=== PATIENT | male | born 1945 | race Caucasian/White ===

== ENCOUNTER 2023-07-24 16:00 | Inpatient (IN) | payer MEDICARE, BC, SELFPAY ==
[2023-07-24] VITALS (71 sets, daily range): BP systolic 109–167; BP diastolic 56–131; PULSE 64–92; RESP 16–24; TEMP 37.7–38.8; O2SAT 89–97; BMI 35.9; BMI 38.0
--- NOTE | 2023-07-24 16:25 | ED.GENADULT ---
HPI - General Adult General Time Seen by Provider: 16:25 Date Seen: 07/24/23 Chief complaint: Weakness Stated complaint: Weakness and fever, shaky Time Seen by Provider: 07/24/23 16:23 Source: patient, family, RN notes reviewed and old records reviewed Mode of arrival: ambulatory Limitations: no limitations History of Present Illness HPI narrative: This 78-year-old male is accompanied by his grandson coming in with a fever. He was at the radiation Center, receiving his 3rd dose of right neck radiation for reported positive lymph nodes with his underlying cancer. Today he seemed weaker per his grandson, required assistance with movement and positioning for the radiation, seemed weaker with walking. He is complaining of neck pain, bilateral, did take a Tylenol No. 3 around 2-230 this afternoon. He did start having shaking at radiation, started with increasing weakness and confusion, noted a fever of 101? F. He was told at the radiation center that he should come here. He has not been coughing, no abdominal pain, no nausea vomiting or diarrhea, no urinary symptoms. No definite known ill contacts. 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 He states the surgery was at [facility], did have a postoperative bleed from the surgical site per his report complicating his surgery. 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 He also has a adenocarcinoma of the left upper lobe. He is receiving his radiation at the [facility] facility here in [place]. His other care in his chemotherapy is at [place]. His other past medical history is noted to be positive for GERD which she states is controlled, gout, hyperlipidemia, hypertension, prediabetes. He has had colonoscopy, retinal detachment surgery. He has not smoked or used tobacco products, no alcohol use. Related Data Home Medications Medication Instructions Recorded Confirmed acetaminophen 500 mg capsule 1,000 mg PO Q6H PRN 07/15/23 07/24/23 allopurinol 300 mg tablet 300 mg PO QDAY 07/15/23 07/24/23 amitriptyline 50 mg tablet 50 mg PO QHS 07/15/23 07/24/23 amlodipine 10 mg tablet 10 mg PO QDAY 07/15/23 07/24/23 esomeprazole magnesium 20 mg 20 mg PO QDAY 07/15/23 07/24/23 capsule,delayed release olmesartan 40 mg tablet 40 mg PO QDAY 07/15/23 07/24/23 sennosides 8.6 mg tablet (Natural 8.6 mg PO QDAY 07/15/23 07/24/23 Senna Laxative) acetaminophen 300 mg-codeine 30 mg 1 tab PO chronic pain 07/24/23 tablet fluoride (sodium) 1.1 % dental gel PO DAILY 07/24/23 omeprazole 20 mg capsule,delayed 20 - 40 mg PO DAILY 07/24/23 07/24/23 release Previous Rx's Medication Instructions Recorded ondansetron HCl 4 mg tablet 4 mg PO Q8H #60 tabs 07/15/23 prochlorperazine maleate 5 mg 5 mg PO BID PRN nausea and 07/15/23 tablet (Compazine) vomiting #60 tabs Allergies Allergy/AdvReac Type Severity Reaction Status Date / Time statins AdvReac Mild itching Uncoded 07/15/23 13:34 Review of Systems Status of ROS: Reports: 6 or more systems reviewed and unremarkable except as noted in History and below PFSH PFS Social History Smoking Status: Never smoker Non-prescribed substance use: denies use Exam Const: Vital Signs, click to edit/add: Vital Signs - 24 hr 07/24/23 16:12 07/24/23 16:33 07/24/23 17:27 Temperature 101.2 F H Pulse Rate 85 Pulse Rate [Pulse Oximeter] 84 Respiratory Rate 16 Blood Pressure 140/64 H Blood Pressure [Ri ght Upper Arm] 150/62 H Pulse Oximetry 97 94 93 Oxygen Delivery Me thod Room Air 07/24/23 17:28 07/24/23 17:30 07/24/23 17:37 Temperature Pulse Rate 85 84 83 Pulse Rate [Pulse Oximeter] Respiratory Rate Blood Pressure 144/74 H Blood Pressure [Ri ght Upper Arm] Pulse Oximetry 95 93 95 Oxygen Delivery Me thod 07/24/23 17:43 07/24/23 17:45 07/24/23 17:47 Temperature Pulse Rate 86 81 84 Pulse Rate [Pulse Oximeter] Respiratory Rate Blood Pressure 132/101 H 146/73 H Blood Pressure [Ri ght Upper Arm] Pulse Oximetry 94 92 96 Oxygen Delivery Me thod 07/24/23 17:52 07/24/23 17:57 07/24/23 18:00 Temperature 100 F H Pulse Rate 88 78 77 Pulse Rate [Pulse Oximeter] Respiratory Rate 22 Blood Pressure 139/90 H 144/66 H Blood Pressure [Ri ght Upper Arm] Pulse Oximetry 94 96 95 Oxygen Delivery Me thod 07/24/23 18:03 07/24/23 18:07 07/24/23 18:12 Temperature Pulse Rate 75 75 72 Pulse Rate [Pulse Oximeter] Respiratory Rate Blood Pressure 127/73 133/65 118/76 Blood Pressure [Ri ght Upper Arm] Pulse Oximetry 94 93 94 Oxygen Delivery Me thod 07/24/23 18:15 07/24/23 18:18 07/24/23 18:22 Temperature Pulse Rate 78 78 75 Pulse Rate [Pulse Oximeter] Respiratory Rate Blood Pressure 130/86 128/61 Blood Pressure [Ri ght Upper Arm] Pulse Oximetry 94 94 94 Oxygen Delivery Me thod 07/24/23 18:27 07/24/23 18:30 07/24/23 18:32 Temperature Pulse Rate 75 76 80 Pulse Rate [Pulse Oximeter] Respiratory Rate Blood Pressure 132/64 121/56 L Blood Pressure [Ri ght Upper Arm] Pulse Oximetry 93 92 94 Oxygen Delivery Me thod 07/24/23 18:37 07/24/23 18:42 07/24/23 18:45 Temperature Pulse Rate 82 76 75 Pulse Rate [Pulse Oximeter] Respiratory Rate Blood Pressure 127/59 L 122/64 Blood Pressure [Ri ght Upper Arm] Pulse Oximetry 93 90 89 Oxygen Delivery Me thod 07/24/23 18:47 07/24/23 18:52 07/24/23 18:57 Temperature Pulse Rate 81 80 88 Pulse Rate [Pulse Oximeter] Respiratory Rate Blood Pressure 116/66 119/61 118/65 Blood Pressure [Ri ght Upper Arm] Pulse Oximetry 89 89 90 Oxygen Delivery Me thod 07/24/23 19:00 07/24/23 19:02 07/24/23 19:07 Temperature Pulse Rate 83 78 85 Pulse Rate [Pulse Oximeter] Respiratory Rate Blood Pressure 123/60 124/58 L Blood Pressure [Ri ght Upper Arm] Pulse Oximetry 90 90 90 Oxygen Delivery Me thod 07/24/23 19:12 07/24/23 19:13 07/24/23 19:15 Temperature Pulse Rate 83 80 77 Pulse Rate [Pulse Oximeter] Respiratory Rate Blood Pressure 114/58 L Blood Pressure [Ri ght Upper Arm] Pulse Oximetry 89 90 91 Oxygen Delivery Me thod 07/24/23 19:17 07/24/23 19:22 07/24/23 19:27 Temperature Pulse Rate 72 79 64 Pulse Rate [Pulse Oximeter] Respiratory Rate Blood Pressure 110/62 109/62 109/61 Blood Pressure [Ri ght Upper Arm] Pulse Oximetry 91 94 [facility] 07[facility] 19:30 07/24/23 19:32 07/24/23 19:38 Temperature Pulse Rate 72 69 73 Pulse Rate [Pulse Oximeter] Respiratory Rate Blood Pressure 120/60 123/59 L Blood Pressure [Ri ght Upper Arm] Pulse Oximetry 91 91 91 [facility] 07/24/23 19:55 07/24/23 19:56 07/24/23 19:57 Temperature Pulse Rate 82 82 78 Pulse Rate [Pulse Oximeter] Respiratory Rate Blood Pressure 160/68 H 137/65 Blood Pressure [Ri ght Upper Arm] Pulse Oximetry 95 94 95 [facility] 78[facility] is alert, interactive, no apparent distress. Able speak in complete sentences. Sclera clear, conjugate gaze. Face atraumatic. Speaking in complete sentences. He has some very mild erythema along his right neck, his postsurgical scar is well healed. Do not appreciate any secondary infection in this right neck. Lungs with distant breath some but no wheezing or crackles noted, no tachypnea. CV regular rate and rhythm, no murmur, normal S1-S2. Abdomen is soft, nontender, nondistended, feel no masses. He has no lower extremity edema. Skin visualized without rash. Documenting provider has reviewed patient's vital signs: yes Course Course ED Course: 78-year-old male with underlying lung cancer reportedly undergoing chemotherapy, metastatic left lymph nodes with squamous cell carcinoma of unknown primary receiving radiation therapy with a fever of unknown source. Will consider viral etiologies, will have nursing staff do the triple viral swab. Will obtain urine, blood cultures, appropriate labs as well as a portable chest x-ray. Consider advanced imaging if felt needed. He is having significant pain from the radiation. I am going to give him a dose of IV morphine. I see no localized evidence of any infection at this site. Will obtain EKG and troponin considering other possible components of chest pain for him. Will initiate IV fluids. Do need to watch for sepsis in this patient. Reevaluation(s) Time of Reevaluation #1: 18:12 Reevaluation #1: Reviewed with this patient that we are going to proceed with chest abdomen and pelvis CT imaging to look for source of infection. He is feeling less pain in his neck after the morphine but wondered if he could have just a small amount more, states he is feeling pain in the shoulder blade area. His troponin is negative. He is likely to need hospitalization due to his fever, weakness. Need to continue to look for source of infection. Will order 2 mg IV morphine for him. He still is not had the need to urinate, he is almost done with his 1 L of fluids. Will order a 2 L of fluids at this time. Consultations Consultation #1: Have spoken with the hospitalist Roma Key. I did find out as I was talking to her that the urinalysis has been collected, blood cultures have been done on arrival, we do not have a focus of infection. Nursing staff reported his temperature is back up to 102? F. I will order Zosyn, another 500 mL of LR to cover for sepsis fluids. His lactate has improved with the initial fluids. He is still otherwise hemodynamically stable. She does accept him. Time: 21:45 Vital Signs Vital signs: Initial Vital Signs Temperature 101.2 F H 07/24/23 16:12 Temperature Source Temporal Artery Scan 07/24/23 16:12 Pulse Rate 84 07/24/23 16:12 Pulse Rhythm Regular 07/24/23 16:12 Pulse Strength 3+ Normal 07/24/23 16:12 Respiratory Rate 16 07/24/23 16:12 Blood Pressure 150/62 H 07/24/23 16:12 Blood Pressure Mean 91 07/24/23 16:12 Blood Pressure Position Sitting 07/24/23 16:12 Pulse Oximetry 97 07/24/23 16:12 Oxygen Delivery Method Room Air 07/24/23 16:12 Vital Signs Temperature 101.2 F H 07/24/23 16:12 Pulse Rate 84 07/24/23 16:12 Respiratory Rate 16 07/24/23 16:12 Blood Pressure 150/62 H 07/24/23 16:12 Pulse Oximetry 97 07/24/23 16:12 Oxygen Delivery Method Room Air 07/24/23 16:12 Temperature 100 F H 07/24/23 17:52 Pulse Rate 78 07/24/23 19:57 Respiratory Rate 22 07/24/23 17:52 Blood Pressure 137/65 07/24/23 19:57 Pulse Oximetry 95 07/24/23 19:57 Oxygen Delivery Method Room Air 07/24/23 16:12 Medications Administered Medications: Discontinued Medications Generic Name Dose Route Start Last Admin Trade Name Freeber PRN Reason Stop Dose Admin Acetaminophen 650 mg 07/24/23 17:27 07/24/23 17:45 Acetaminophen 325 Mg Tablet PO 07/24/23 17:28 650 mg ONCE ONE Administration Sodium Chloride 1,000 mls @ 500 mls/hr 07/24/23 16:37 07/24/23 18:20 0.9 % Sodium Chloride 1000 Ml IV 07/24/23 18:36 Infused .Q2H TAPAN Infusion Morphine Sulfate 4 mg 07/24/23 16:37 07/24/23 17:11 Morphine 4 Mg/Ml Inj IVP 07/24/23 16:38 4 mg ONCE ONE Administration Ondansetron HCl 4 mg 07/24/23 17:27 07/24/23 17:45 Ondansetron 2 Mg/Ml Inj IVP 07/24/23 17:28 4 mg ONCE ONE Administration Medical Decision Making Lab Data Lab results reviewed: Yes I reviewed the patient's lab results Labs: Lab Results 07/24/23 07/24/23 07/24/23 Range/Units 16:42 16:42 16:42 WBC 13.95 H (4.50-11.00) K/uL RBC 3.61 L (4.30-5.90) m/uL Hgb 11.4 L (13.5-17.5) gm/dL Hct 34.5 L (37.0-53.0) % MCV 96 (80-100) fL MCH 32 (26-34) pg MCHC 33 (32-36) gm/dL RDW Coeff of Renny 15.2 (11.5-15.5) % Plt Count 234 (140-440) K/uL Neut % (Auto) 93.4 H (42.0-72.0) % Lymph % (Auto) 0.8 L (20-44) % [place] % (Auto) 5.3 (0.0-11.0) % Eos % (Auto) 0.0 (0.0-7.0) % Baso % (Auto) 0.1 (0.0-3.0) % Neut # (Auto) 13.00 H (1.7-7.0) K/uL Lymph # (Auto) 0.10 L (0.90-2.90) K/uL [place] # (Auto) 0.70 (0.00-0.90) K/UL Eos # (Auto) 0.00 (0.00-0.50) K/uL Baso # (Auto) 0.00 (0.00-0.30) K/uL Abs Immat Gran (auto) 0.10 (0.00-0.30) K/uL Imm/Tot Granulo (auto) 0.4 % Sodium 136 (135-149) mmol/L Potassium 4.1 (3.6-5.1) mmol/L Chloride 105 (96-114) mmol/L Carbon Dioxide 19 L (20-32) mmol/L Anion Gap 12 (7-15) mEq/L BUN 30 (7-30) mg/dL Creatinine 1.8 H (0.5-1.5) mg/dL Estimated Creat Clear 33.80 Estimated GFR 38 ml/min Glucose 126 H (60-115) mg/dL Lactate 2.9 H (0.5-1.9) mmol/L Calcium 9.4 (8.4-10.6) mg/dL Total Bilirubin 0.5 (0.1-1.5) mg/dL AST 33 (12-35) U/L ALT 37 (4-50) U/L Alkaline Phosphatase 87 (40-150) U/L Troponin I < 0.01 L Cancelled (0.01-0.04) ng/mL C-Reactive Protein < 0.5 L (0.5-1.0) mg/dL NT-Pro-B Natriuret Pep 652 Cancelled pg/mL Total Protein 7.3 (6.0-8.3) g/dL Albumin 4.4 (3.3-5.0) g/dL Urine Color (Yellow) Urine Appearance (Clear) Urine pH (5.0-8.5) Ur Specific [place] (1.000-1.030) Urine Protein (Negative) Urine Glucose (UA) (Negative) Urine Ketones (Negative) Urine Blood (Negative) Urine Nitrite (Negative) Urine Bilirubin (Negative) Urine Urobilinogen (0.2-1.0) Ur Leukocyte Esterase (Negative) Urine RBC (0-2) Urine WBC (0-5) Ur Squamous Epith Cells (None-Few) Urine Bacteria (None) SARS-CoV-2 (PCR) Negative SARS-CoV-2 (Negative) Influenza Type A (PCR) Negative PCR FLU A (Negative) Influenza Type B (PCR) Negative PCR FLU B (Negative) RSV (PCR) Negative PCR RSV (Negative) 07/24/23 07/24/23 Range/Units 20:35 20:42 WBC (4.50-11.00) K/uL RBC (4.30-5.90) m/uL Hgb (13.5-17.5) gm/dL Hct (37.0-53.0) % MCV (80-100) fL MCH (26-34) pg MCHC (32-36) gm/dL RDW Coeff of Renny (11.5-15.5) % Plt Count (140-440) K/uL Neut % (Auto) (42.0-72.0) % Lymph % (Auto) (20-44) % [place] % (Auto) (0.0-11.0) % Eos % (Auto) (0.0-7.0) % Baso % (Auto) (0.0-3.0) % Neut # (Auto) (1.7-7.0) K/uL Lymph # (Auto) (0.90-2.90) K/uL [place] # (Auto) (0.00-0.90) K/UL Eos # (Auto) (0.00-0.50) K/uL Baso # (Auto) (0.00-0.30) K/uL Abs Immat Gran (auto) (0.00-0.30) K/uL Imm/Tot Granulo (auto) % Sodium (135-149) mmol/L Potassium (3.6-5.1) mmol/L Chloride (96-114) mmol/L Carbon Dioxide (20-32) mmol/L Anion Gap (7-15) mEq/L BUN (7-30) mg/dL Creatinine (0.5-1.5) mg/dL Estimated Creat Clear Estimated GFR ml/min Glucose (60-115) mg/dL Lactate 2.0 H (0.5-1.9) mmol/L Calcium (8.4-10.6) mg/dL Total Bilirubin (0.1-1.5) mg/dL AST (12-35) U/L ALT (4-50) U/L Alkaline Phosphatase (40-150) U/L Troponin I (0.01-0.04) ng/mL C-Reactive Protein (0.5-1.0) mg/dL NT-Pro-B Natriuret Pep pg/mL Total Protein (6.0-8.3) g/dL Albumin (3.3-5.0) g/dL Urine Color Yellow (Yellow) Urine Appearance Clear (Clear) Urine pH 5.0 (5.0-8.5) Ur Specific [place] 1.015 (1.000-1.030) Urine Protein Trace A (Negative) Urine Glucose (UA) Negative (Negative) Urine Ketones Negative (Negative) Urine Blood Negative (Negative) Urine Nitrite Negative (Negative) Urine Bilirubin Negative (Negative) Urine Urobilinogen 0.2 (0.2-1.0) Ur Leukocyte Esterase Negative (Negative) Urine RBC 2-5 A (0-2) Urine WBC 10-25 A (0-5) Ur Squamous Epith Cells None (None-Few) Urine Bacteria None (None) SARS-CoV-2 (PCR) (Negative) Influenza Type A (PCR) (Negative) Influenza Type B (PCR) (Negative) RSV (PCR) (Negative) Imaging Data CT Chest/Ab/Pelvis: Attestation: I have reviewed the pertinent imaging results. Radiologist's impression: Patient: JEFERSON CASSIDY Facility:?[facility] Patient ID:?[id number] Site Patient ID:?[id number]. Site :?[id number] Study:?CT Chest/Abd/Pelvis W/ 122CC ISOVUE 370-07/24/2023 7:54:53 PM Ordering Physician:SAIMA Final Report: INDICATION: FEVER, UNKNOWN SOURCE, LUNG CA MARISA, LYMP METS SCC NO SOURCE. TECHNIQUE: CT chest, abdomen and pelvis acquired with 122cc Isovue 370 IV contrast. COMPARISON: None. FINDINGS: CHEST Lungs and pleura: 1.6 cm irregular nodular density in the left upper lobe (3/35). No effusions, thickening, or pneumothorax. No consolidation. Heart and vasculature: Heart size is normal. Thoracic aorta and pulmonary artery are normal in caliber. Coronary artery calcification. Lymph node/mediastinum: No mediastinal, hilar, or axillary adenopathy. Mildly enlarged right distal paraesophageal lymph node measuring 8 mm in short axis. Small to moderate-sized hiatal hernia. Chest wall: Normal. Bones: Old right lateral 5th and 6th rib fractures. No suspicious lesion. ABDOMEN AND PELVIS: Liver: Normal in caliber and attenuation. No masses. Gallbladder and bile ducts: Unremarkable. Pancreas: Fatty atrophy. No inflammation or mass. Spleen: Normal in caliber. No masses. Adrenal glands: Unremarkable. No masses. Kidneys: Two small nonobstructing right nephroliths, measuring up to 3 mm. Atrophic right kidney. GI tract: Normal in caliber and appearance. The appendix is not clearly visualized; however, there are no inflammatory changes in the right lower quadrant. Vasculature: Normal caliber abdominal aorta with mild atherosclerotic calcification. Mesenteric arteries are patent. Lymph nodes: No lymphadenopathy. Omentum/peritoneum/retroperitoneum/abdominal wall: No masses or infiltration. No free air or significant free fluid. Small fat-containing right inguinal hernia. Pelvic organs: Prostatomegaly. Bones: No suspicious bone lesions. IMPRESSION: 1. No acute finding within the chest, abdomen or pelvis. No finding to explain the patient`s fever. 2. 1.6 cm irregular nodular density in the left upper lobe. No prior study available for comparison. Malignancy can not be excluded. This could be further evaluated PET-CT, if not previously performed or if this is a new finding. 3. Small to moderate-sized hiatal hernia. 4. Small nonobstructing right nephroliths. No evidence for obstructive uropathy. 5. Prostatomegaly. 6. Nonspecific mildly enlarged right distal paraesophageal lymph node measuring 8 mm. Metastatic disease can not be entirely excluded given the history of malignancy. Please note that all CT scans at this facility use dose modulation, iterative reconstruction, and/or weight-based dosing when appropriate to reduce radiation dose to as low as reasonably achievable. Dictated by Jose Philip MD @ 07/24/2023 9:04:54 PM (Electronic Signature) ECG Data Attestation: I personally reviewed and interpreted this ECG as follows: (Sinus rhythm, 85 beats per minute. There is some artifact. Difficult to interpret lead 1 into due to artifact but overall no concerning ischemic change. QT corrected at 421 milliseconds.) Prior ECG tracings: not available for review Discharge Plan Discharge Clinical Impression: Fever of unknown origin Patient Disposition: Admitted As Observation Condition: Unchanged
--- NOTE | 2023-07-24 16:33 | XR_ITS ---
Patient: JEFERSON CASSIDY Facility:?[facility] Patient ID:?[id number] Site Patient ID:?[id number]. Site :?[id number] Study:?XRay-Chest PORTABLE-07/24/2023 5:56:15 PM Ordering Physician:SAIMA Final Report: INDICATION: Shortness of breath. COMPARISON: None available. TECHNIQUE: 1 view. FINDINGS: The patient is slightly rotated rightward. Medical Devices: None. Lung Volumes: Adequate inspiration. No significant atelectasis. Lungs: Clear lungs. Pleura and Pleural spaces: No significant pleural effusion. No pneumothorax. Mediastinum: Hiatus hernia. Bony Thorax and Soft Tissues: No significant incidental findings. Healed fractures of the right posterolateral 5th and 6th ribs. IMPRESSION: No imaging findings pertinent to the indication for the exam or significant unrelated findings. Incidental findings described in the body of the report. Dictated by Octaviano Jaramillo MD @ 07/25/2023 7:24:05 AM Signed by:?Octaviano Jaramillo MD @07/25/2023 7:24:05 AM (Electronic Signature)
[2023-07-24] MEDS: 0.9 % SODIUM CHLORIDE 1000 ml 1,000 ML 500 ML IV ×2 (17:11→20:00)
[2023-07-24] MEDS: MORPHINE 4 MG/ML INJ IVP (17:11)
[2023-07-24 17:14] LABS: Lactate* 2.9 mmol/L (0.5-1.9)
[2023-07-24 17:16] LABS: Basophils Percent Auto 0.1 % (0.0-3.0); Hematocrit 34.5 % (37.0-53.0); Hemoglobin* 11.4 gm/dL (13.5-17.5); Immature Granulocytes Pct Auto 0.4 %; Lymphocytes Percent Auto 0.8 % (20-44); Mean Corpuscular HGB Conc 33 gm/dL (32-36); Mean Corpuscular Hemoglobin 32 pg (26-34); Mean Corpuscular Volume 96 fL (80-100); Monocytes Percent Auto 5.3 % (0.0-11.0); Neutrophils Percent Auto 93.4 % (42.0-72.0); Platelet Count* 234 K/uL (140-440); RDW Coefficient of Variation % 15.2 % (11.5-15.5); Red Blood Count 3.61 m/uL (4.30-5.90); Slide Review Reflex No; White Blood Count* 13.95 K/uL (4.50-11.00)
[2023-07-24 17:38] LABS: Albumin* 4.4 g/dL (3.3-5.0); Chloride* 105 mmol/L (96-114); Sodium* 136 mmol/L (135-149)
[2023-07-24 17:39] LABS: Potassium* 4.1 mmol/L (3.6-5.1)
[2023-07-24 17:41] LABS: Bilirubin Total* 0.5 mg/dL (0.1-1.5); Creatinine* 1.8 mg/dL (0.5-1.5); Estimated Glomerular Filt Rate 38 ml/min
[2023-07-24 17:42] LABS: Alanine Aminotransferase* 37 U/L (4-50); Alkaline Phosphatase* 87 U/L (40-150); Anion Gap 12 mEq/L (7-15); Aspartate Amino Transferase* 33 U/L (12-35); Blood Urea Nitrogen* 30 mg/dL (7-30); Calcium* 9.4 mg/dL (8.4-10.6); Carbon Dioxide* 19 mmol/L (20-32); Glucose* 126 mg/dL (60-115); Total Protein* 7.3 g/dL (6.0-8.3)
[2023-07-24] MEDS: ACETAMINOPHEN 325 MG TABLET 650 MG PO ×2 (17:45→22:00)
[2023-07-24] MEDS: ONDANSETRON 2 MG/ML inj 4 MG IVP (17:45)
[2023-07-24 17:51] LABS: C Reactive Protein* < 0.5 mg/dL (0.5-1.0); NT Pro B Type NatriureticPept* 652 pg/mL
[2023-07-24 17:52] LABS: PCR FLU A Negative PCR FLU A (Negative); PCR FLU B Negative PCR FLU B (Negative); PCR RSV Negative PCR RSV (Negative); SARS PCR* Negative SARS-CoV-2 (Negative)
[2023-07-24 17:54] LABS: Troponin I* < 0.01 ng/mL (0.01-0.04)
--- NOTE | 2023-07-24 18:09 | CT_ITS ---
Patient: JEFERSON CASSIDY Facility:?[facility] Patient ID:?[id number] Site Patient ID:?[id number]. Site :?[id number] Study:?CT-Chest/Abd/Pelvis W/ 122CC ISOVUE 370-07/24/2023 7:54:53 PM Ordering Physician:SAIMA Final Report: INDICATION: FEVER, UNKNOWN SOURCE, LUNG CA MARISA, LYMP METS SCC NO SOURCE. TECHNIQUE: CT chest, abdomen and pelvis acquired with 122cc Isovue 370 IV contrast. COMPARISON: None. FINDINGS: CHEST Lungs and pleura: 1.6 cm irregular nodular density in the left upper lobe (3/35). No effusions, thickening, or pneumothorax. No consolidation. Heart and vasculature: Heart size is normal. Thoracic aorta and pulmonary artery are normal in caliber. Coronary artery calcification. Lymph node/mediastinum: No mediastinal, hilar, or axillary adenopathy. Mildly enlarged right distal paraesophageal lymph node measuring 8 mm in short axis. Small to moderate-sized hiatal hernia. Chest wall: Normal. Bones: Old right lateral 5th and 6th rib fractures. No suspicious lesion. ABDOMEN AND PELVIS: Liver: Normal in caliber and attenuation. No masses. Gallbladder and bile ducts: Unremarkable. Pancreas: Fatty atrophy. No inflammation or mass. Spleen: Normal in caliber. No masses. Adrenal glands: Unremarkable. No masses. Kidneys: Two small nonobstructing right nephroliths, measuring up to 3 mm. Atrophic right kidney. GI tract: Normal in caliber and appearance. The appendix is not clearly visualized; however, there are no inflammatory changes in the right lower quadrant. Vasculature: Normal caliber abdominal aorta with mild atherosclerotic calcification. Mesenteric arteries are patent. Lymph nodes: No lymphadenopathy. Omentum/peritoneum/retroperitoneum/abdominal wall: No masses or infiltration. No free air or significant free fluid. Small fat-containing right inguinal hernia. Pelvic organs: Prostatomegaly. Bones: No suspicious bone lesions. IMPRESSION: 1. No acute finding within the chest, abdomen or pelvis. No finding to explain the patient`s fever. 2. 1.6 cm irregular nodular density in the left upper lobe. No prior study available for comparison. Malignancy can not be excluded. This could be further evaluated PET-CT, if not previously performed or if this is a new finding. 3. Small to moderate-sized hiatal hernia. 4. Small nonobstructing right nephroliths. No evidence for obstructive uropathy. 5. Prostatomegaly. 6. Nonspecific mildly enlarged right distal paraesophageal lymph node measuring 8 mm. Metastatic disease can not be entirely excluded given the history of malignancy. Please note that all CT scans at this facility use dose modulation, iterative reconstruction, and/or weight-based dosing when appropriate to reduce radiation dose to as low as reasonably achievable. Dictated by Jose Philip MD @ 07/24/2023 9:04:54 PM Signed by:?Jose Philip MD @07/24/2023 9:04:54 PM (Electronic Signature)
[2023-07-24] MEDS: MORPHINE 2 MG/ML inj IVP (18:35)
[2023-07-24 21:48] LABS: Appearance Urine Clear (Clear); Bilirubin Urine Negative (Negative); Blood Urine Negative (Negative); Color Urine Yellow (Yellow); Glucose Urine Negative (Negative); Ketones Urine Negative (Negative); Leukocyte Esterase Urine Negative (Negative); Nitrite Urine Negative (Negative); Protein Urine Trace (Negative); Specific Gravity Urine 1.015 (1.000-1.030); Urobilinogen Urine 0.2 (0.2-1.0)
[2023-07-24] MEDS: PIPERACILLIN/TAZOBACTAM 3.375 GM in 0.9 % SODIUM CHLORIDE Mini-bag 100 ML IVPB (22:00)
--- NOTE | 2023-07-24 22:58 | P.IMHP_ITS ---
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 Patient was in [place] today for radiation therapy when he was noted to be quite weak and febrile. Had otherwise felt his usual self yesterday. Denies recent headaches or dizziness. Denies nasal congestion. Has a chronic sore throat (40 years) and oral pain, no worse than usual. Denies chest pain or shortness of breath. Has had some clavical pain since his oral surgery. Denies cough or congestion. Denies abdominal pain, nausea, vomiting, diarrhea. Denies UTI symptoms. In the ED, patient noted to be febrile with a temperature of 102?. Otherwise vitally stable. No neutropenia. Leukocytosis. No obvious source of infection at time of admission. UC and BC x2 pending. Patient was initiated on IV Zosyn and IVF. 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 Never smoked. Stopped drinking 30 years ago. Review of Systems Narrative: REVIEW OF SYSTEMS: Complete review of systems performed and negative unless otherwise stated in HPI or below. [facility] Medical History (Updated 07/24/23 @ 23:42 by Roma Reid PA-C) GERD (gastroesophageal reflux disease) ?K21.9 - Gastro-esophageal reflux disease without esophagitis (ICD-10) Oral pain ?K13.79 - Other lesions of oral mucosa (ICD-10) Diabetes mellitus ?E11.9 - Type 2 diabetes mellitus without complications (ICD-10) CKD (chronic kidney disease) ?N18.9 - Chronic kidney disease, unspecified (ICD-10) Renal insufficiency ?N28.9 - Disorder of kidney and ureter, unspecified (ICD-10) BPH (benign prostatic hyperplasia) ?N40.0 - Benign prostatic hyperplasia without lower urinary tract symptoms (ICD-10) Anxiety ?F41.9 - Anxiety disorder, unspecified (ICD-10) Gout ?M10.9 - Gout, unspecified (ICD-10) Hyperlipidemia ?E78.5 - Hyperlipidemia, unspecified (ICD-10) Palpitations ?R00.2 - Palpitations (ICD-10) Hypertension ?I10 - Essential (primary) hypertension (ICD-10) Social History Smoking Status: Never smoker Non-prescribed substance use: denies use Meds Home Medications and Allergies Home Medications Medication Instructions Recorded Confirmed Type acetaminophen 500 mg capsule 1,000 mg PO Q6H PRN 07/15/23 07/24/23 History allopurinol 300 mg tablet 300 mg PO QDAY 07/15/23 07/24/23 History amitriptyline 50 mg tablet 50 mg PO QHS 07/15/23 07/24/23 History amlodipine 10 mg tablet 10 mg PO QDAY 07/15/23 07/24/23 History esomeprazole magnesium 20 mg 20 mg PO QDAY 07/15/23 07/24/23 History capsule,delayed release olmesartan 40 mg tablet 40 mg PO QDAY 07/15/23 07/24/23 History sennosides 8.6 mg tablet (Natural 8.6 mg PO QDAY 07/15/23 07/24/23 History Senna Laxative) acetaminophen 300 mg-codeine 30 mg 1 tab PO chronic pain 07/24/23 History tablet fluoride (sodium) 1.1 % dental gel PO DAILY 07/24/23 History omeprazole 20 mg capsule,delayed 20 - 40 mg PO DAILY 07/24/23 07/24/23 History release Allergies Allergy/AdvReac Type Severity Reaction Status Date / Time statins AdvReac Mild itching Uncoded 07/15/23 13:34 Exam Narrative: Exam Narrative: PHYSICAL EXAM General: Very pleasant, conversant, NAD HEENT: Normocephalic, atraumatic, sclera white, EOMI Cardiovascular: RRR, S1S2. No pitting edema Pulmonary: CTA bilaterally without rhonchi, rales, expiratory wheezes. No dyspnea Abdominal: Soft, nondistended, NTTP Neurological: Alert, answering questions appropriately, cranial nerves intact, no focal findings Extremities: No gross joint deformity or swelling. AROMI. Neurovascularly intact Skin: Warm, dry. Mild erythema at neck, skin otherwise intact. Const: Vital Signs, click to edit/add: Vital Signs - 24 hr 07/24/23 16:12 07/24/23 16:33 07/24/23 17:27 Temperature 101.2 F H Pulse Rate 85 Pulse Rate [Pulse Oximeter] 84 Respiratory Rate 16 Blood Pressure 140/64 H Blood Pressure [Ri ght Upper Arm] 150/62 H Pulse Oximetry 97 94 93 Oxygen Delivery Me thod Room Air 07/24/23 17:28 07/24/23 17:30 07/24/23 17:37 Temperature Pulse Rate 85 84 83 Pulse Rate [Pulse Oximeter] Respiratory Rate Blood Pressure 144/74 H Blood Pressure [Ri ght Upper Arm] Pulse Oximetry 95 93 95 Oxygen Delivery Me thod 07/24/23 17:43 07/24/23 17:45 07/24/23 17:47 Temperature Pulse Rate 86 81 84 Pulse Rate [Pulse Oximeter] Respiratory Rate Blood Pressure 132/101 H 146/73 H Blood Pressure [Ri ght Upper Arm] Pulse Oximetry 94 92 96 Oxygen Delivery Me thod 07/24/23 17:52 07/24/23 17:57 07/24/23 18:00 Temperature 100 F H Pulse Rate 88 78 77 Pulse Rate [Pulse Oximeter] Respiratory Rate 22 Blood Pressure 139/90 H 144/66 H Blood Pressure [Ri ght Upper Arm] Pulse Oximetry 94 96 95 Oxygen Delivery Me thod 07/24/23 18:03 07/24/23 18:07 07/24/23 18:12 Temperature Pulse Rate 75 75 72 Pulse Rate [Pulse Oximeter] Respiratory Rate Blood Pressure 127/73 133/65 118/76 Blood Pressure [Ri ght Upper Arm] Pulse Oximetry 94 93 94 Oxygen Delivery Me thod 07/24/23 18:15 07/24/23 18:18 07/24/23 18:22 Temperature Pulse Rate 78 78 75 Pulse Rate [Pulse Oximeter] Respiratory Rate Blood Pressure 130/86 128/61 Blood Pressure [Ri ght Upper Arm] Pulse Oximetry 94 94 94 Oxygen Delivery Me thod 07/24/23 18:27 07/24/23 18:30 07/24/23 18:32 Temperature Pulse Rate 75 76 80 Pulse Rate [Pulse Oximeter] Respiratory Rate Blood Pressure 132/64 121/56 L Blood Pressure [Ri ght Upper Arm] Pulse Oximetry 93 92 94 Oxygen Delivery Me thod 07/24/23 18:37 07/24/23 18:42 07/24/23 18:45 Temperature Pulse Rate 82 76 75 Pulse Rate [Pulse Oximeter] Respiratory Rate Blood Pressure 127/59 L 122/64 Blood Pressure [Ri ght Upper Arm] Pulse Oximetry 93 90 89 Oxygen Delivery Me thod 07/24/23 18:47 07/24/23 18:52 07/24/23 18:57 Temperature Pulse Rate 81 80 88 Pulse Rate [Pulse Oximeter] Respiratory Rate Blood Pressure 116/66 119/61 118/65 Blood Pressure [Ri ght Upper Arm] Pulse Oximetry 89 89 90 Oxygen Delivery Me thod 07/24/23 19:00 07/24/23 19:02 07/24/23 19:07 Temperature Pulse Rate 83 78 85 Pulse Rate [Pulse Oximeter] Respiratory Rate Blood Pressure 123/60 124/58 L Blood Pressure [Ri ght Upper Arm] Pulse Oximetry 90 90 90 Oxygen Delivery Me thod 07/24/23 19:12 07/24/23 19:13 07/24/23 19:15 Temperature Pulse Rate 83 80 77 Pulse Rate [Pulse Oximeter] Respiratory Rate Blood Pressure 114/58 L Blood Pressure [Ri ght Upper Arm] Pulse Oximetry 89 90 91 Oxygen Delivery Me thod 07/24/23 19:17 07/24/23 19:22 07/24/23 19:27 Temperature Pulse Rate 72 79 64 Pulse Rate [Pulse Oximeter] Respiratory Rate Blood Pressure 110/62 109/62 109/61 Blood Pressure [Ri ght Upper Arm] Pulse Oximetry 91 94 92 Oxygen Delivery Me thod 07/24/23 19:30 07/24/23 19:32 07/24/23 19:38 Temperature Pulse Rate 72 69 73 Pulse Rate [Pulse Oximeter] Respiratory Rate Blood Pressure 120/60 123/59 L Blood Pressure [Ri ght Upper Arm] Pulse Oximetry 91 91 91 Oxygen Delivery Me thod 07/24/23 19:55 07/24/23 19:56 07/24/23 19:57 Temperature Pulse Rate 82 82 78 Pulse Rate [Pulse Oximeter] Respiratory Rate Blood Pressure 160/68 H 137/65 Blood Pressure [Ri ght Upper Arm] Pulse Oximetry 95 94 95 Oxygen Delivery Me thod 07/24/23 19:58 07/24/23 20:00 07/24/23 20:02 Temperature Pulse Rate 77 76 76 Pulse Rate [Pulse Oximeter] Respiratory Rate Blood Pressure 129/66 Blood Pressure [Ri ght Upper Arm] Pulse Oximetry 95 94 95 Oxygen Delivery Me thod Room Air 07/24/23 20:07 07/24/23 20:12 07/24/23 20:17 Temperature Pulse Rate 74 Pulse Rate [Pulse Oximeter] Respiratory Rate Blood Pressure 125/63 115/73 134/62 Blood Pressure [Ri ght Upper Arm] Pulse Oximetry 95 Oxygen Delivery Me thod 07/24/23 20:22 07/24/23 20:27 07/24/23 20:32 Temperature Pulse Rate Pulse Rate [Pulse Oximeter] Respiratory Rate Blood Pressure 131/60 128/65 122/61 Blood Pressure [Ri ght Upper Arm] Pulse Oximetry Oxygen Delivery Me thod 07/24/23 20:42 07/24/23 20:47 07/24/23 20:52 Temperature Pulse Rate Pulse Rate [Pulse Oximeter] Respiratory Rate Blood Pressure 136/69 142/72 H 141/70 H Blood Pressure [Ri ght Upper Arm] Pulse Oximetry Oxygen Delivery Me thod 07/24/23 20:58 07/24/23 21:02 07/24/23 21:07 Temperature Pulse Rate Pulse Rate [Pulse Oximeter] Respiratory Rate Blood Pressure 148/69 H 141/73 H 142/74 H Blood Pressure [Ri ght Upper Arm] Pulse Oximetry Oxygen Delivery Me thod 07/24/23 21:12 07/24/23 21:17 07/24/23 21:22 Temperature Pulse Rate Pulse Rate [Pulse Oximeter] Respiratory Rate Blood Pressure 150/75 H 147/75 H 131/89 Blood Pressure [Ri ght Upper Arm] Pulse Oximetry Oxygen Delivery Me thod 07/24/23 21:27 07/24/23 21:33 07/24/23 21:38 Temperature Pulse Rate Pulse Rate [Pulse Oximeter] Respiratory Rate Blood Pressure 144/75 H 148/102 H 157/131 H Blood Pressure [Ri ght Upper Arm] Pulse Oximetry Oxygen Delivery Md thod 07/24/23 21:53 07/24/23 22:00 07/24/23 22:00 Temperature 102 F H 102 F H Pulse Rate Pulse Rate [Pulse Oximeter] Respiratory Rate Blood Pressure 148/67 H Blood Pressure [Ri ght Upper Arm] Pulse Oximetry Oxygen Delivery Md thod 07/24/23 22:03 07/24/23 22:06 07/24/23 22:15 Temperature Pulse Rate 92 89 Pulse Rate [Pulse Oximeter] Respiratory Rate Blood Pressure 167/81 H Blood Pressure [Ri ght Upper Arm] Pulse Oximetry 93 90 Oxygen Delivery Md thod Room Air Hospitalist - H&P: Result Labs Labs: Short CBC 07/24/23 Range/Units 16:42 WBC 13.95 H (4.50-11.00) K/uL Hgb 11.4 L (13.5-17.5) gm/dL Hct 34.5 L (37.0-53.0) % Plt Count 234 (140-440) K/uL BMP 07/24/23 16:42 Sodium 136 Potassium 4.1 Chloride 105 Carbon Dioxide 19 L BUN 30 Creatinine 1.8 H Glucose 126 H Calcium 9.4 Cardiac Enzymes 07/24/23 07/24/23 Range/Units 16:42 16:42 Troponin I < 0.01 L Cancelled (0.01-0.04) ng/mL Liver Function 07/24/23 Range/Units 16:42 Total Bilirubin 0.5 (0.1-1.5) mg/dL AST 33 (12-35) U/L ALT 37 (4-50) U/L Alkaline Phosphatase 87 (40-150) U/L Albumin 4.4 (3.3-5.0) g/dL Urine 07/24/23 Range/Units 20:35 Urine Color Yellow (Yellow) Urine Appearance Clear (Clear) Urine pH 5.0 (5.0-8.5) Ur Specific [place] 1.015 (1.000-1.030) Urine Protein Trace A (Negative) Urine Glucose (UA) Negative (Negative) ECG Attestation: I personally reviewed and interpreted this ECG as follows: Interpretation: EKG shows NSR with artifact, ventricular rate 85, QTC [address] Chest/Ab/Pelvis: Attestation: I have reviewed the pertinent imaging results. Radiologist's impression: CT chest, abdomen and pelvis acquired with 122cc Isovue 370 IV contrast. COMPARISON: None. FINDINGS: CHEST Lungs and pleura: 1.6 cm irregular nodular density in the left upper lobe (3/35). No effusions, thickening, or pneumothorax. No consolidation. Heart and vasculature: Heart size is normal. Thoracic aorta and pulmonary artery are normal in caliber. Coronary artery calcification. Lymph node/mediastinum: No mediastinal, hilar, or axillary adenopathy. Mildly enlarged right distal paraesophageal lymph node measuring 8 mm in short axis. Small to moderate-sized hiatal hernia. Chest wall: Normal. Bones: Old right lateral 5th and 6th rib fractures. No suspicious lesion. ABDOMEN AND PELVIS: Liver: Normal in caliber and attenuation. No masses. Gallbladder and bile ducts: Unremarkable. Pancreas: Fatty atrophy. No inflammation or mass. Spleen: Normal in caliber. No masses. Adrenal glands: Unremarkable. No masses. Kidneys: Two small nonobstructing right nephroliths, measuring up to 3 mm. Atrophic right kidney. GI tract: Normal in caliber and appearance. The appendix is not clearly visualized; however, there are no inflammatory changes in the right lower quadrant. Vasculature: Normal caliber abdominal aorta with mild atherosclerotic calcification. Mesenteric arteries are patent. Lymph nodes: No lymphadenopathy. Omentum/peritoneum/retroperitoneum/abdominal wall: No masses or infiltration. No free air or significant free fluid. Small fat-containing right inguinal hernia. Pelvic organs: Prostatomegaly. Bones: No suspicious bone lesions. IMPRESSION: 1. No acute finding within the chest, abdomen or pelvis. No finding to explain the patient`s fever. 2. 1.6 cm irregular nodular density in the left upper lobe. No prior study available for comparison. Malignancy can not be excluded. This could be further evaluated PET-CT, if not previously performed or if this is a new finding. 3. Small to moderate-sized hiatal hernia. 4. Small nonobstructing right nephroliths. No evidence for obstructive uropathy. 5. Prostatomegaly. 6. Nonspecific mildly enlarged right distal paraesophageal lymph node measuring 8 mm. Metastatic disease can not be entirely excluded given the history of malignancy. Assessment and Plan Assessment and plan (1) Fever of unknown origin: Problem comment: Onset this morning during radiation therapy T to 102?, leukocytosis, elevated lactate-will trend, viral panel negative, UA not overtly positive, UC pending, BC x2 pending, CT chest abdomen pelvis without acute cause for fever. Other than weakness, denying new symptomatology such as cough, congestion, abdominal pain, vomiting, diarrhea. 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 status post right base of tongue resection and right neck lymph node dissection on 06/21/2023 Intensity modulated radiation therapy to the base of tongue, right neck levels IB-V, left neck levels II-V and right tonsil initiated on July 22, 2023; anticipated through August 30, 2023 with concurrent weekly carboplatin Followed by [facility] Status: Acute (3) Adenocarcinoma of left lung: Problem comment: Stage I A 3, clinical T1c N0 M0 adenocarcinoma of the left upper lung SBRT to left upper lung cancer to initiated on July 25, 2023; anticipated date of completion is on July 31, 2023 Followed by [facility] Status: Acute (4) Hypertension: Problem comment: Pharmacy to confirm home medications. Would hold lisinopril if currently taking given elevated creatinine Status: Chronic (5) Hyperlipidemia: Problem comment: Pharmacy to confirm statin Status: Chronic (6) Gout: Problem comment: Pharmacy to confirm if currently taking allopurinol. Hold for elevated creatinine Status: Chronic (7) CKD (chronic kidney disease): Problem comment: Creatinine 1.8, most recent 1.2-1.7 Avoid nephrotoxic medications, would hold allopurinol and lisinopril if currently taking these, renally dose antibiotics Continue to monitor Status: Chronic (8) Diabetes mellitus: Problem comment: Home med list does not include any oral medications or insulin Most recent A1c 5.9 in June Will monitor with glucose checks ACHS, deferring insulin sliding scale at this time, diabetic diet Status: Chronic (9) Oral pain: Problem comment: Chronic, oral pain and sore throat, worsened postoperatively recently This evening he is unable to tell me which pain medication helps him in addition to amitriptyline at bedtime Status: Acute Total Time Spent Total Time Spent: Total time spent caring for the patient today was 75 minutes. This includes time spent for the visit reviewing the chart, time spent during the visit, time spent after the visit and documentation and planning in coordination of care.
[2023-07-25] VITALS (13 sets, daily range): BP systolic 94–145; BP diastolic 50–89; PULSE 66–88; RESP 16–24; TEMP 36.6–38.7; O2SAT 91–95; BMI 37.5
[2023-07-25] MEDS: OMEPRAZOLE 20 MG CAPSULE DR PO ×2 (00:33→09:23)
[2023-07-25] MEDS: AMITRIPTYLINE 25 MG TABLET 50 MG PO ×2 (00:34→17:34)
[2023-07-25] MEDS: ENOXAPARIN 30 MG/0.3ML INJ SUBCUT ×2 (00:34→21:21)
[2023-07-25] MEDS: 0.9 % SODIUM CHLORIDE 1000 ml 1,000 ML 100 ML IV ×2 (00:36→15:32)
[2023-07-25] MEDS: ACETAMINOPHEN 500 MG TABLET 1000 MG FEED TUBE (05:11)
[2023-07-25] MEDS: PIPERACILLIN/TAZOBACTAM 3.375 GM in 0.9 % SODIUM CHLORIDE Mini-bag 100 ML IVPB ×3 (05:45→21:23)
[2023-07-25 06:52] LABS: Hematocrit 29.6 % (37.0-53.0); Hemoglobin* 9.7 gm/dL (13.5-17.5); Mean Corpuscular HGB Conc 33 gm/dL (32-36); Mean Corpuscular Hemoglobin 32 pg (26-34); Mean Corpuscular Volume 96 fL (80-100); Platelet Count* 178 K/uL (140-440); Red Blood Count 3.08 m/uL (4.30-5.90); White Blood Count* 8.29 K/uL (4.50-11.00)
[2023-07-25 07:02] LABS: Slide Review Reflex No
[2023-07-25 07:12] LABS: Chloride* 108 mmol/L (96-114); Potassium* 4.4 mmol/L (3.6-5.1); Sodium* 133 mmol/L (135-149)
[2023-07-25 07:15] LABS: Anion Gap 6 mEq/L (7-15); Blood Urea Nitrogen* 29 mg/dL (7-30); Carbon Dioxide* 19 mmol/L (20-32); Creatinine* 1.9 mg/dL (0.5-1.5); Est. Creatinine Clearance* 32.02; Estimated Glomerular Filt Rate 35 ml/min; Glucose* 125 mg/dL (60-115)
[2023-07-25 07:16] LABS: Calcium* 8.4 mg/dL (8.4-10.6)
--- NOTE | 2023-07-25 08:55 | PC.NURSE ---
Patient arrived from ED at approximately 2225. Patient pleasant, alert and cooperative. Oriented with occasional confusion. Reported having a headache and some lightheadedness; per patient is not worse than when was in ER. ?Tylenol given for temp of 100.2. Transferred to commode with assist of 2 due to weakness/unsteadiness.?
[2023-07-25] MEDS: ACETAMINOPHEN 500 MG TABLET 1000 MG PO ×2 (09:22→18:00)
[2023-07-25 10:23] LABS: C Reactive Protein* 4.3 mg/dL (0.5-1.0)
[2023-07-25 10:37] LABS: Procalcitonin* 2.71 ng/mL (<0.50)
[2023-07-25 10:56] LABS: Procalcitonin* 1.35 ng/mL (<0.50)
--- NOTE | 2023-07-25 14:32 | P.IMPN_ITS ---
Progress Note: A&P Assessment and plan (1) Fever of unknown origin: Problem details: Onset right after during radiation therapy on 07/23with witnessed rigors, high risk for bacteremia fever all night of admission; now afebrile, but still weak. vitally stable. 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 status post right base of tongue resection and right neck lymph node dissection on 06/21/2023 Intensity modulated radiation therapy to the base of tongue, right neck levels IB-V, left neck levels II-V and right tonsil initiated on July 22, 2023; anticipated through August 30, 2023 with concurrent weekly carboplatin Followed by [facility] Status: Acute (3) Adenocarcinoma of left lung: Problem details: Stage I A 3, clinical T1c N0 M0 adenocarcinoma of the left upper lung SBRT to left upper lung cancer to initiated on July 25, 2023; anticipated date of completion is on July 31, 2023 Followed by [facility] Status: Acute (4) Hypertension: Problem details: Pharmacy to confirm home medications. Would hold lisinopril if currently taking given elevated creatinine Status: Chronic (5) Hyperlipidemia: Problem details: Pharmacy to confirm statin Status: Chronic (6) Gout: Problem details: Pharmacy to confirm if currently taking allopurinol. Hold for elevated creatinine Status: Chronic (7) CKD (chronic kidney disease): Problem details: Creatinine 1.9, most recent 1.3 Avoid nephrotoxic medications, would hold allopurinol and lisinopril if currently taking these, renally dose antibiotics Continue to monitor Status: Chronic (8) Diabetes mellitus: Problem details: Home med list does not include any oral medications or insulin Most recent A1c 5.9 in June Will monitor with glucose checks ACHS, deferring insulin sliding scale at this time, diabetic diet Status: Chronic (9) Oral pain: Problem details: Chronic, oral pain and sore throat, worsened postoperatively recently This evening he is unable to tell me which pain medication helps him in addition to amitriptyline at bedtime Status: Acute Subjective Date Seen: 07/25/23 Interval history: Daily Progress Note - Hospital Medicine #: 2 CC: rigors; febrile illness. current cancer patient/XRT OVERNIGHT UPDATES FROM STAFF & MED, LAB, IMAGING UPDATES febrile all night. feels weak. Feels a little better this morning. Objective: minimally dishelved. NAD. afebrile when I meet him. Vitals: see above Lungs: Clear. Cardiac: S1S2. CBC reflects a white blood cell count that went from 13.9 down to 8.3 Hemoglobin dropped to 9.7 Platelet count is stable Sodium 133, creatinine is still elevated 1.9. Baseline 1.3 Glucose 125 Lactate has now normalized CRP less than 0.5 up to 4.3 Procalcitonin 1.3-2.7 CT reviewed Blood cultures are pending, negative to date. Urine culture in progress Disposition/Potential discharge - Likely to return to previous living situation. Today I spent 50minutes seeing the patient, reviewing Expanse and EPIC notes/diagnostics, discussing the care plan with our care time that includes social work, PT/OT, pharmacy, RT, halfway and documenting my impressions and plan in the medical record. Exam Const: Vital Signs, click to edit/add: Vital Signs - 24 hr 07/24/23 16:12 07/24/23 16:33 07/24/23 17:27 Temperature 101.2 F H Pulse Rate 85 Pulse Rate [Pulse Oximeter] 84 Respiratory Rate 16 Blood Pressure 140/64 H Blood Pressure [Le ft Arm] Blood Pressure [Ri ght Upper Arm] 150/62 H Pulse Oximetry 97 94 93 Oxygen Delivery Me thod Room Air 07/24/23 17:28 07/24/23 17:30 07/24/23 17:37 Temperature Pulse Rate 85 84 83 Pulse Rate [Pulse Oximeter] Respiratory Rate Blood Pressure 144/74 H Blood Pressure [Le ft Arm] Blood Pressure [Ri ght Upper Arm] Pulse Oximetry 95 93 95 Oxygen Delivery Me thod 07/24/23 17:43 07/24/23 17:45 07/24/23 17:47 Temperature Pulse Rate 86 81 84 Pulse Rate [Pulse Oximeter] Respiratory Rate Blood Pressure 132/101 H 146/73 H Blood Pressure [Le ft Arm] Blood Pressure [Ri ght Upper Arm] Pulse Oximetry 94 92 96 Oxygen Delivery Me thod 07/24/23 17:52 07/24/23 17:57 07/24/23 18:00 Temperature 100 F H Pulse Rate 88 78 77 Pulse Rate [Pulse Oximeter] Respiratory Rate 22 Blood Pressure 139/90 H 144/66 H Blood Pressure [Le ft Arm] Blood Pressure [Ri ght Upper Arm] Pulse Oximetry 94 96 95 Oxygen Delivery Me thod 07/24/23 18:03 07/24/23 18:07 07/24/23 18:12 Temperature Pulse Rate 75 75 72 Pulse Rate [Pulse Oximeter] Respiratory Rate Blood Pressure 127/73 133/65 118/76 Blood Pressure [Le ft Arm] Blood Pressure [Ri ght Upper Arm] Pulse Oximetry 94 93 94 Oxygen Delivery Me thod 07/24/23 18:15 07/24/23 18:18 07/24/23 18:22 Temperature Pulse Rate 78 78 75 Pulse Rate [Pulse Oximeter] Respiratory Rate Blood Pressure 130/86 128/61 Blood Pressure [Le ft Arm] Blood Pressure [Ri ght Upper Arm] Pulse Oximetry 94 94 94 [facility] 18:27 07/24/23 18:30 07/24/23 18:32 Temperature Pulse Rate 75 76 80 Pulse Rate [Pulse Oximeter] Respiratory Rate Blood Pressure 132/64 121/56 L Blood Pressure [Le ft Arm] Blood Pressure [Ri ght Upper Arm] Pulse Oximetry 93 92 94 [facility] 07/[facility]/23 18:37 07/24/23 18:42 07/24/23 18:45 Temperature Pulse Rate 82 76 75 Pulse Rate [Pulse Oximeter] Respiratory Rate Blood Pressure 127/59 L 122/64 Blood Pressure [Le ft Arm] Blood Pressure [Ri ght Upper Arm] Pulse Oximetry 93 90 89 Oxygen Delivery Me od 07/24/23 18:47 07/24/23 18:52 07/24/23 18:57 Temperature Pulse Rate 81 80 88 Pulse Rate [Pulse Oximeter] Respiratory Rate Blood Pressure 116/66 119/61 118/65 Blood Pressure [Le ft Arm] Blood Pressure [Ri ght Upper Arm] Pulse Oximetry 89 89 90 Oxygen Delivery Me thod 07/24/23 19:00 07/24/23 19:02 07/24/23 19:07 Temperature Pulse Rate 83 78 85 Pulse Rate [Pulse Oximeter] Respiratory Rate Blood Pressure 123/60 124/58 L Blood Pressure [Le ft Arm] Blood Pressure [Ri ght Upper Arm] Pulse Oximetry 90 90 90 Oxygen Delivery Me thod 07/24/23 19:12 07/24/23 19:13 07/24/23 19:15 Temperature Pulse Rate 83 80 77 Pulse Rate [Pulse Oximeter] Respiratory Rate Blood Pressure 114/58 L Blood Pressure [Le ft Arm] Blood Pressure [Ri ght Upper Arm] Pulse Oximetry 89 90 91 Oxygen Delivery Me thod 07/24/23 19:17 07/24/23 19:22 07/24/23 19:27 Temperature Pulse Rate 72 79 64 Pulse Rate [Pulse Oximeter] Respiratory Rate Blood Pressure 110/62 109/62 109/61 Blood Pressure [Le ft Arm] Blood Pressure [Ri ght Upper Arm] Pulse Oximetry 91 94 92 Oxygen Delivery Me thod 07/24/23 19:30 07/24/23 19:32 07/24/23 19:38 Temperature Pulse Rate 72 69 73 Pulse Rate [Pulse Oximeter] Respiratory Rate Blood Pressure 120/60 123/59 L Blood Pressure [Le ft Arm] Blood Pressure [Ri ght Upper Arm] Pulse Oximetry 91 91 91 Oxygen Delivery Me thod 07/24/23 19:55 07/24/23 19:56 07/24/23 19:57 Temperature Pulse Rate 82 82 78 Pulse Rate [Pulse Oximeter] Respiratory Rate Blood Pressure 160/68 H 137/65 Blood Pressure [Le ft Arm] Blood Pressure [Ri ght Upper Arm] Pulse Oximetry 95 94 95 Oxygen Delivery Me thod 07/24/23 19:58 07/24/23 20:00 07/24/23 20:02 Temperature Pulse Rate 77 76 76 Pulse Rate [Pulse Oximeter] Respiratory Rate Blood Pressure 129/66 Blood Pressure [Le ft Arm] Blood Pressure [Ri ght Upper Arm] Pulse Oximetry 95 94 95 Oxygen Delivery Me thod Room Air 07/24/23 20:07 07/24/23 20:12 07/24/23 20:17 Temperature Pulse Rate 74 Pulse Rate [Pulse Oximeter] Respiratory Rate Blood Pressure 125/63 115/73 134/62 Blood Pressure [Le ft Arm] Blood Pressure [Ri ght Upper Arm] Pulse Oximetry 95 Oxygen Delivery Me thod 07/24/23 20:22 07/24/23 20:27 07/24/23 20:32 Temperature Pulse Rate Pulse Rate [Pulse Oximeter] Respiratory Rate Blood Pressure 131/60 128/65 122/61 Blood Pressure [Le ft Arm] Blood Pressure [Ri ght Upper Arm] Pulse Oximetry Oxygen Delivery Mi thod 07/24/23 20:42 07/24/23 20:47 07/24/23 20:52 Temperature Pulse Rate Pulse Rate [Pulse Oximeter] Respiratory Rate Blood Pressure 136/69 142/72 H 141/70 H Blood Pressure [Le ft Arm] Blood Pressure [Ri ght Upper Arm] Pulse Oximetry Oxygen Delivery Mi thod 07/24/23 20:58 07/24/23 21:02 07/24/23 21:07 Temperature Pulse Rate Pulse Rate [Pulse Oximeter] Respiratory Rate Blood Pressure 148/69 H 141/73 H 142/74 H Blood Pressure [Le ft Arm] Blood Pressure [Ri ght Upper Arm] Pulse Oximetry Oxygen Delivery Mi thod 07/24/23 21:12 07/24/23 21:17 07/24/23 21:22 Temperature Pulse Rate Pulse Rate [Pulse Oximeter] Respiratory Rate Blood Pressure 150/75 H 147/75 H 131/89 Blood Pressure [Le ft Arm] Blood Pressure [Ri ght Upper Arm] Pulse Oximetry Oxygen Delivery Mi thod 07/24/23 21:27 07/24/23 21:33 07/24/23 21:38 Temperature Pulse Rate Pulse Rate [Pulse Oximeter] Respiratory Rate Blood Pressure 144/75 H 148/102 H 157/131 H Blood Pressure [Le ft Arm] Blood Pressure [Ri ght Upper Arm] Pulse Oximetry Oxygen Delivery Mi thod 07/24/23 21:53 07/24/23 22:00 07/24/23 22:00 Temperature 102 F H 102 F H Pulse Rate Pulse Rate [Pulse Oximeter] Respiratory Rate Blood Pressure 148/67 H Blood Pressure [Le ft Arm] Blood Pressure [Ri ght Upper Arm] Pulse Oximetry Oxygen Delivery Mi thod 07/24/23 22:03 07/24/23 22:06 07/24/23 22:15 Temperature Pulse Rate 92 89 Pulse Rate [Pulse Oximeter] Respiratory Rate Blood Pressure 167/81 H Blood Pressure [Le ft Arm] Blood Pressure [Ri ght Upper Arm] Pulse Oximetry 93 90 [facility] 07/24/23 22:50 07/24/23 22:50 07/24/23 22:52 Temperature 100.2 F H Pulse Rate Pulse Rate [Pulse Oximeter] 86 Respiratory Rate 24 24 Blood Pressure Blood Pressure [Le ft Arm] 139/71 Blood Pressure [Ri ght Upper Arm] Pulse Oximetry 93 93 93 Oxygen Delivery [facility] Room Air Room Air Room Air 07/24/23 22:52 07/24/23 22:52 07/24/23 23:00 Temperature 100.2 F H Pulse Rate 69 Pulse Rate [Pulse Oximeter] 86 Respiratory Rate 24 24 Blood Pressure Blood Pressure [Le ft Arm] 139/71 Blood Pressure [Ri ght Upper Arm] Pulse Oximetry 93 Oxygen Delivery [facility] Room Air 07/25/23 03:00 07/25/23 05:11 07/25/23 07:00 Temperature 101.7 F H 101.7 F H 100.3 F H Pulse Rate Pulse Rate [Pulse Oximeter] 87 67 Respiratory Rate 24 16 Blood Pressure Blood Pressure [Le ft Arm] 120/50 L 94/53 L Blood Pressure [Ri ght Upper Arm] Pulse Oximetry 91 94 Oxygen Delivery [facility] Room Air Room Air 07/25/23 07:30 07/25/23 09:22 07/25/23 09:30 Temperature 98.2 F 98.9 F Pulse Rate 66 Pulse Rate [Pulse Oximeter] Respiratory Rate Blood Pressure Blood Pressure [Le ft Arm] Blood Pressure [Ri ght Upper Arm] Pulse Oximetry Oxygen Delivery [facility] 07/25/23 11:00 Temperature 98.0 F Pulse Rate Pulse Rate [Pulse Oximeter] 67 Respiratory Rate 16 Blood Pressure Blood Pressure [Le ft Arm] 133/72 Blood Pressure [Ri ght Upper Arm] Pulse Oximetry 95 Oxygen Delivery [facility] Room Air Labs Labs: Laboratory Results - last 24 hr 07/24/23 07/24/23 07/24/23 16:42 16:42 16:42 WBC 13.95 H RBC 3.61 L Hgb 11.4 L Hct 34.5 L MCV 96 MCH 32 MCHC 33 RDW Coeff of Renny 15.2 Plt Count 234 Neut % (Auto) 93.4 H Lymph % (Auto) 0.8 L [place] % (Auto) 5.3 Eos % (Auto) 0.0 Baso % (Auto) 0.1 Neut # (Auto) 13.00 H Lymph # (Auto) 0.10 L [place] # (Auto) 0.70 Eos # (Auto) 0.00 Baso # (Auto) 0.00 Abs Immat Gran (auto) 0.10 Imm/Tot Granulo (auto) 0.4 Sodium 136 Potassium 4.1 Chloride 105 Carbon Dioxide 19 L Anion Gap 12 BUN 30 Creatinine 1.8 H Estimated Creat Clear 33.80 Estimated GFR 38 Glucose 126 H Lactate 2.9 H Calcium 9.4 Total Bilirubin 0.5 AST 33 ALT 37 Alkaline Phosphatase 87 Troponin I < 0.01 L Cancelled C-Reactive Protein < 0.5 L NT-Pro-B Natriuret Pep 652 Cancelled Total Protein 7.3 Albumin 4.4 Procalcitonin 1.35 H Urine Color Urine Appearance Urine pH Ur Specific [place] Urine Protein Urine Glucose (UA) Urine Ketones Urine Blood Urine Nitrite Urine Bilirubin Urine Urobilinogen Ur Leukocyte Esterase Urine RBC Urine WBC Ur Squamous Epith Cells Urine Bacteria SARS-CoV-2 (PCR) Negative SARS-CoV-2 Influenza Type A (PCR) Negative PCR FLU A Influenza Type B (PCR) Negative PCR FLU B RSV (PCR) Negative PCR RSV Lab Acknowledgement 07/24/23 07/24/23 07/25/23 20:35 20:42 06:13 WBC 8.29 RBC 3.08 L Hgb 9.7 L Hct 29.6 L MCV 96 MCH 32 MCHC 33 RDW Coeff of Renny Plt Count 178 Neut % (Auto) Lymph % (Auto) [place] % (Auto) Eos % (Auto) Baso % (Auto) Neut # (Auto) Lymph # (Auto) [place] # (Auto) Eos # (Auto) Baso # (Auto) Abs Immat Gran (auto) Imm/Tot Granulo (auto) Sodium 133 L Potassium 4.4 Chloride 108 Carbon Dioxide 19 L Anion Gap 6 L BUN 29 Creatinine 1.9 H Estimated Creat Clear 32.02 Estimated GFR 35 Glucose 125 H Lactate 2.0 H 1.0 Calcium 8.4 Total Bilirubin AST ALT Alkaline Phosphatase Troponin I C-Reactive Protein 4.3 H NT-Pro-B Natriuret Pep Total Protein Albumin Procalcitonin 2.71 H Urine Color Yellow Urine Appearance Clear Urine pH 5.0 Ur Specific [place] 1.015 Urine Protein Trace A Urine Glucose (UA) Negative Urine Ketones Negative Urine Blood Negative Urine Nitrite Negative Urine Bilirubin Negative Urine Urobilinogen 0.2 Ur Leukocyte Esterase Negative Urine RBC 2-5 A Urine WBC 10-25 A Ur Squamous Epith Cells None Urine Bacteria None SARS-CoV-2 (PCR) Influenza Type A (PCR) Influenza Type B (PCR) RSV (PCR) Lab Acknowledgement 07/25/23 09:42 WBC RBC Hgb Hct MCV MCH MCHC RDW Coeff of Renny Plt Count Neut % (Auto) Lymph % (Auto) [place] % (Auto) Eos % (Auto) Baso % (Auto) Neut # (Auto) Lymph # (Auto) [place] # (Auto) Eos # (Auto) Baso # (Auto) Abs Immat Gran (auto) Imm/Tot Granulo (auto) Sodium Potassium Chloride Carbon Dioxide Anion Gap BUN Creatinine Estimated Creat Clear Estimated GFR Glucose Lactate Calcium Total Bilirubin AST ALT Alkaline Phosphatase Troponin I C-Reactive Protein NT-Pro-B Natriuret Pep Total Protein Albumin Procalcitonin Urine Color Urine Appearance Urine pH Ur Specific [place] Urine Protein Urine Glucose (UA) Urine Ketones Urine Blood Urine Nitrite Urine Bilirubin Urine Urobilinogen Ur Leukocyte Esterase Urine RBC Urine WBC Ur Squamous Epith Cells Urine Bacteria SARS-CoV-2 (PCR) Influenza Type A (PCR) Influenza Type B (PCR) RSV (PCR) Lab Acknowledgement Test Added
[2023-07-25 15:34] LABS: Hemoglobin A1C* 5.8 % (0-5.6)
--- NOTE | 2023-07-25 18:40 | PC.NURSE ---
End of Shift [id number]: The patient is alert and orientated although forgetful at times. The patient reports feeling weak throughout the day. Fever noted today @ 100.9 this AM Tylenol was given no more fevers throughout the day. Up SBA to BR, per PT the patient refused to ambulate with a walker. 1 void this shift. Poor fluid intake and with meals. Only ate 75% of breakfast then refused to order the remainder of the day. Per the patient he states food doesn't taste like anything since chemotherapy. He was encouraged to try to drink more fluids. Premier protein was provided and consumed. NS running @ 100ml/hr. Iv ABX infused throughout the day. No reports of pain this shift. Call light within reach. Waleska AGUILAR BSN
[2023-07-26] VITALS (10 sets, daily range): BP systolic 126–153; BP diastolic 61–103; PULSE 59–100; RESP 18–24; TEMP 36.8–37.6; O2SAT 6–97
[2023-07-26] MEDS: 0.9 % SODIUM CHLORIDE 1000 ml 1,000 ML 100 ML IV ×2 (02:20→14:33)
[2023-07-26] MEDS: PIPERACILLIN/TAZOBACTAM 3.375 GM in 0.9 % SODIUM CHLORIDE Mini-bag 100 ML IVPB ×4 (02:20→20:30)
--- NOTE | 2023-07-26 04:07 | PC.NURSE ---
This RN accessed this patient's intervention list in order to record output after assisting this pt with toileting when pt's primary RN was assisting another patient.
[2023-07-26 07:03] LABS: HCO3 VBG 19 mmol/L (21-28); PCO2 VBG 33 mmHG (40-50); PO2 VBG 77.9 mmHG (25-47); pH VBG 7.356 (7.32-7.43)
[2023-07-26 07:04] LABS: Basophils Absolute Auto 0.01 K/uL (0.00-0.30); Basophils Percent Auto 0.1 % (0.0-3.0); Eosinophils Absolute Auto 0.18 K/uL (0.00-0.50); Eosinophils Percent Auto 2.7 % (0.0-7.0); Hematocrit 29.9 % (37.0-53.0); Hemoglobin* 9.8 gm/dL (13.5-17.5); Immature Granulocytes Abs Auto 0.02 K/uL (0.00-0.30); Immature Granulocytes Pct Auto 0.3 %; Lymphocytes Percent Auto 3.3 % (20-44); Mean Corpuscular HGB Conc 33 gm/dL (32-36); Mean Corpuscular Hemoglobin 31 pg (26-34); Mean Corpuscular Volume 95 fL (80-100); Neutrophils Percent Auto 86.6 % (42.0-72.0); Platelet Count* 155 K/uL (140-440); RDW Coefficient of Variation % 15.3 % (11.5-15.5); Red Blood Count 3.14 m/uL (4.30-5.90); White Blood Count* 6.73 K/uL (4.50-11.00)
[2023-07-26 07:32] LABS: Chloride* 111 mmol/L (96-114); Slide Review Reflex No; Sodium* 134 mmol/L (135-149)
[2023-07-26 07:33] LABS: Potassium* 4.1 mmol/L (3.6-5.1)
[2023-07-26 07:34] LABS: Creatinine* 1.7 mg/dL (0.5-1.5); Est. Creatinine Clearance* 35.78; Estimated Glomerular Filt Rate 40 ml/min
[2023-07-26 07:35] LABS: Alanine Aminotransferase* 80 U/L (4-50); Alkaline Phosphatase* 138 U/L (40-150); Anion Gap 6 mEq/L (7-15); Aspartate Amino Transferase* 67 U/L (12-35); Bilirubin Total* 2.2 mg/dL (0.1-1.5); Blood Urea Nitrogen* 28 mg/dL (7-30); Carbon Dioxide* 17 mmol/L (20-32); Glucose* 100 mg/dL (60-115); Total Protein* 5.6 g/dL (6.0-8.3)
[2023-07-26 07:36] LABS: Calcium* 8.1 mg/dL (8.4-10.6)
[2023-07-26 07:38] LABS: C Reactive Protein* 5.5 mg/dL (0.5-1.0)
[2023-07-26 07:51] LABS: Procalcitonin* 1.61 ng/mL (<0.50)
--- NOTE | 2023-07-26 08:32 | PC.NURSE ---
Patient pleasant, alert and cooperative.?Transferred with assist of one. Afebrile during night. Reported having a sensation that goes across his upper chest. States that he feels like he?s getting a cold and that he has had this discomfort before. Audible expiratory wheezes heard. O2 sats 88% on RA. Oxygen applied and O2 sats increased. Per patient chest discomfort resolved a short time afterward.?PM Hospitalist updated. No further complaints during the night?
--- NOTE | 2023-07-26 10:15 | US_ITS ---
Patient: JEFERSON CASSIDY Facility:?[facility] Patient ID:?[id number] Site Patient ID:?[id number]. Site :?[id number] Study:?US-Abdomen GB ONLY-07/26/2023 10:37:10 AM Ordering Physician:RASHAD REGAN Final Report: INDICATION: Fever. Abnormal LFTs. COMPARISON: CT 07/24/2023 TECHNIQUE: Limited sonographic examination of the gallbladder and CBD. FINDINGS: Gallbladder: Contracted. Free of stones or significant sludge. Apparent uniform diffuse gallbladder wall thickening. This may be in part related to gallbladder contraction. Gallbladder wall thickening is nonspecific and may be associated with coexisting liver disease, for example, in this patient with a history of abnormal LFTs. Negative sonographic Carey sign. CBD: 6mm Peritoneal Cavity: No significant ascites. Additional Findings: None. IMPRESSION: Nonspecific diffuse gallbladder wall thickening. Interpretation is confounded by gallbladder contraction. Gallbladder wall thickening could be due to underlying liver disease. No evidence of cholelithiasis or other sonographic findings to indicate acute cholecystitis. Dictated by Octaviano Jaramillo MD @ 07/26/2023 10:46:18 AM Signed by:?Octaviano Jaramillo MD @07/26/2023 10:46:18 AM (Electronic Signature)
[2023-07-26] MEDS: OMEPRAZOLE 20 MG CAPSULE DR PO (11:06)
--- NOTE | 2023-07-26 11:40 | P.GSCN_ITS ---
History of Present Illness Consult details Date Seen: 07/26/23 Consult date: 07/26/23 Narrative: 78-year-old male is admitted to the hospital with fevers, and I was asked by Dr. Green to see him in consultation. Patient was admitted 2 days ago with a fever of 102. Patient is s/p partial tongue resection and right lymph node dissection on 06/21/2023 at [facility]. Patient states that the day after surgery he had some oral bleeding that was either cauterized or stapled by his description. Two days after he coughed up big blood clot and was taken back to surgery. He states that he was ?cleaned up?. He is not sure what exactly was done. Patient started radiation therapy last week. On the day of his admission he presented with rigors and a fever of 102. Patient denied abdominal pain. He was tolerating regular diet but did not have a good appetite because ?nothing tastes good?. He is passing lot of gas and his last bowel movement was 3 days ago. Upon his workup he was found to have an elevated WBC of 13.9. This has been decreasing and now is normal at 6. Patient has been on antibiotics. Patient's liver function tests on admission were normal but today's total bilirubin was 2.2 with AST [address] of chest/abdomen/pelvis was obtained and did not show dilated loops of small large intestine. There was no evidence of inflammation in the abdomen. The gallbladder did not appear to be inflamed. Since patient had elevated transaminases today, a gallbladder ultrasound was obtained that showed gallbladder wall thickening of 9 mm. The common bile duct was measured at 6 mm. The final radiology report is still pending. Review of Systems Narrative: General: no fevers HENT: no problems swallowing CV: no shortness of breath Resp: no cough GI: No nausea, vomiting, abdominal pain : no dysuria, no increased urinary frequency, no hematuria Skin: no new rashes Musculoskeletal: no back pain Neuro: no muscle weakness Psyche: no depression, no anxiety PFSH [facility] Medical History GERD (gastroesophageal reflux disease) ?K21.9 - Gastro-esophageal reflux disease without esophagitis (ICD-10) Oral pain ?K13.79 - Other lesions of oral mucosa (ICD-10) Diabetes mellitus ?E11.9 - Type 2 diabetes mellitus without complications (ICD-10) CKD (chronic kidney disease) ?N18.9 - Chronic kidney disease, unspecified (ICD-10) Renal insufficiency ?N28.9 - Disorder of kidney and ureter, unspecified (ICD-10) BPH (benign prostatic hyperplasia) ?N40.0 - Benign prostatic hyperplasia without lower urinary tract symptoms (ICD-10) Anxiety ?F41.9 - Anxiety disorder, unspecified (ICD-10) Gout ?M10.9 - Gout, unspecified (ICD-10) Hyperlipidemia ?E78.5 - Hyperlipidemia, unspecified (ICD-10) Palpitations ?R00.2 - Palpitations (ICD-10) Hypertension ?I10 - Essential (primary) hypertension (ICD-10) Social History What is your current living situation?: I presently have a place to live Problems where you live: no known problems Problems where you live details: n/a In the past 12 months, utilities in danger of being shut off: no In past 12 months, lack of transportation kept you from medical appts, meetings, work, or getting things needed for daily living: no In the past 12 mos, have been you worried that your food would run out before you had money to buy more?: never true In the past 12 mos, the food you bought just didn't last and you didn't have money to buy more?: never true Smoking Status: Never smoker How often do you have a drink containing alcohol: never AUDIT-C Alcohol total score: 0 Non-prescribed substance use: denies use Caffeine: No How often does anyone, including family, friends and others, physically hurt you : never How often does anyone, including family, friends and others, insult or talk down to you: never How often does anyone, including family, friends and others, threaten you with harm: never How often does anyone, including family, friends and others, scream or curse at you: never service: No Meds Home Medications and Allergies Home Medications Medication Instructions Recorded Confirmed Type acetaminophen 500 mg capsule 1,000 mg PO Q6H PRN 07/15/23 07/24/23 History allopurinol 300 mg tablet 300 mg PO QDAY 07/15/23 07/24/23 History amitriptyline 50 mg tablet 50 mg PO HS 07/15/23 07/25/23 History amlodipine 10 mg tablet 10 mg PO DAILY 07/15/23 07/25/23 History esomeprazole magnesium 20 mg 20 mg PO DAILY 07/15/23 07/25/23 History capsule,delayed release olmesartan 40 mg tablet 40 mg PO DAILY 07/15/23 07/25/23 History sennosides 8.6 mg tablet (Natural 8.6 mg PO DAILY 07/15/23 07/25/23 History Senna Laxative) acetaminophen 300 mg-codeine 30 mg 1 tab PO BID PRN chronic pain 07/24/23 07/25/23 History tablet fluoride (sodium) 1.1 % dental gel PO DAILY 07/24/23 History omeprazole 20 mg capsule,delayed 20 - 40 mg PO DAILY 07/24/23 07/24/23 History release Allergies Allergy/AdvReac Type Severity Reaction Status Date / Time statins AdvReac Mild itching Uncoded 07/15/23 13:34 Exam Narrative: Exam Narrative: General appearance: Alert, cooperative, and in no distress Head: The right superior neck lymph node dissection incision is healing well with no surrounding erythema. There is some postoperative firmness posterior and inferior but no fluctuance palpated. With brief exam of the oral cavity there is no purulence seen on the right side. Pulmonary: Chest symmetric, lungs clear bilaterally Cardiovascular Heart: Regular rate and rhythm, S1, S2, no murmurs/rubs/gallops Gastrointestinal Abdominal: soft, not distended, not tender to palpation anywhere in the abdomen with negative Carey sign. Skin: Normal skin color, texture, and turgor. No rashes or lesions. Psychiatric: Alert, cooperative, normal affect. Const: Vital Signs, click to edit/add: Vital Signs - 24 hr 07/25/23 15:00 07/25/23 15:30 07/25/23 19:00 Temperature 98.7 F 99.1 F Pulse Rate 67 Pulse Rate [Pulse Oximeter] 70 88 Pulse Rate [orthos tatic lying Right Radial] Pulse Rate [orthos tatic sitting Righ t Radial] Pulse Rate [orthos tatic standing Rig ht Radial] Respiratory Rate 16 24 Blood Pressure [Le ft Arm] Blood Pressure [Ri ght Arm] 145/89 H 122/71 Blood Pressure [or thostatic lying Ri ght Arm] Blood Pressure [or thostatic sitting Right Arm] Blood Pressure [or thostatic standing Right Arm] Pulse Oximetry 94 91 Oxygen Delivery Me thod Room Air Room Air Oxygen Flow Rate 07/25/23 22:52 07/25/23 23:00 07/25/23 23:00 Temperature 97.9 F Pulse Rate 71 Pulse Rate [Pulse Oximeter] 83 Pulse Rate [orthos tatic lying Right Radial] Pulse Rate [orthos tatic sitting Righ t Radial] Pulse Rate [orthos tatic standing Rig ht Radial] Respiratory Rate 22 22 Blood Pressure [Le ft Arm] 140/56 H Blood Pressure [Ri ght Arm] Blood Pressure [or thostatic lying Ri ght Arm] Blood Pressure [or thostatic sitting Right Arm] Blood Pressure [or thostatic standing Right Arm] Pulse Oximetry 91 93 Oxygen Delivery Me thod Room Air Nasal Cannula Oxygen Flow Rate 0.5 07/25/23 23:34 07/26/23 02:24 07/26/23 07:00 Temperature 99.7 F H Pulse Rate Pulse Rate [Pulse Oximeter] 73 81 Pulse Rate [orthos tatic lying Right Radial] Pulse Rate [orthos tatic sitting Righ t Radial] Pulse Rate [orthos tatic standing Rig ht Radial] Respiratory Rate 24 20 Blood Pressure [Le ft Arm] Blood Pressure [Ri ght Arm] 130/63 132/74 Blood Pressure [or thostatic lying Ri ght Arm] Blood Pressure [or thostatic sitting Right Arm] Blood Pressure [or thostatic standing Right Arm] Pulse Oximetry 93 92 97 Oxygen Delivery Me thod Nasal Cannula Room Air Oxygen Flow Rate 1 07/26/23 07:00 07/26/23 07:00 07/26/23 08:06 Temperature Pulse Rate Pulse Rate [Pulse Oximeter] Pulse Rate [orthos tatic lying Right Radial] 81 Pulse Rate [orthos tatic sitting Righ t Radial] 79 Pulse Rate [orthos tatic standing Rig ht Radial] 100 Respiratory Rate 20 Blood Pressure [Le ft Arm] Blood Pressure [Ri ght Arm] Blood Pressure [or thostatic lying Ri ght Arm] 132/74 Blood Pressure [or thostatic sitting Right Arm] 134/103 H Blood Pressure [or thostatic standing Right Arm] 126/74 Pulse Oximetry 97 Oxygen Delivery Me thod Room Air Oxygen Flow Rate 07/26/23 09:54 Temperature Pulse Rate 61 Pulse Rate [Pulse Oximeter] Pulse Rate [orthos tatic lying Right Radial] Pulse Rate [orthos tatic sitting Righ t Radial] Pulse Rate [orthos tatic standing Rig ht Radial] Respiratory Rate Blood Pressure [Le ft Arm] Blood Pressure [Ri ght Arm] Blood Pressure [or thostatic lying Ri ght Arm] Blood Pressure [or thostatic sitting Right Arm] Blood Pressure [or thostatic standing Right Arm] Pulse Oximetry Oxygen Delivery Me thod Oxygen Flow Rate Results Labs Labs: Abnormal lab results 07/25/23 07/26/23 Range/Units 06:13 06:28 RBC 3.14 L (4.30-5.90) m/uL Hgb 9.8 L (13.5-17.5) gm/dL Hct 29.9 L (37.0-53.0) % Neut % (Auto) 86.6 H (42.0-72.0) % Lymph % (Auto) 3.3 L (20-44) % Lymph # (Auto) 0.20 L (0.90-2.90) K/uL VBG pCO2 33 L (40-50) mmHG VBG pO2 77.9 H (25-47) mmHG VBG HCO3 19 L (21-28) mmol/L Sodium 134 L (135-149) mmol/L Carbon Dioxide 17 L (20-32) mmol/L Anion Gap 6 L (7-15) mEq/L Creatinine 1.7 H (0.5-1.5) mg/dL Hemoglobin A1c 5.8 H (0-5.6) % Calcium 8.1 L (8.4-10.6) mg/dL Total Bilirubin 2.2 H (0.1-1.5) mg/dL AST 67 H (12-35) U/L ALT 80 H (4-50) U/L C-Reactive Protein 5.5 H (0.5-1.0) mg/dL Total Protein 5.6 L (6.0-8.3) g/dL Albumin 3.0 L (3.3-5.0) g/dL Procalcitonin 1.61 H (<0.50) ng/mL Diabetes panel 07/25/23 07/26/23 Range/Units 06:13 06:28 Sodium 134 L (135-149) mmol/L Potassium 4.1 (3.6-5.1) mmol/L Chloride 111 (96-114) mmol/L Carbon Dioxide 17 L (20-32) mmol/L BUN 28 (7-30) mg/dL Creatinine 1.7 H (0.5-1.5) mg/dL Glucose 100 (60-115) mg/dL Hemoglobin A1c 5.8 H (0-5.6) % Calcium 8.1 L (8.4-10.6) mg/dL AST 67 H (12-35) U/L ALT 80 H (4-50) U/L Alkaline Phosphatase 138 (40-150) U/L Total Protein 5.6 L (6.0-8.3) g/dL Albumin 3.0 L (3.3-5.0) g/dL Calcium panel 07/26/23 Range/Units 06:28 Calcium 8.1 L (8.4-10.6) mg/dL Albumin 3.0 L (3.3-5.0) g/dL Pituitary panel 07/26/23 Range/Units 06:28 Sodium 134 L (135-149) mmol/L Potassium 4.1 (3.6-5.1) mmol/L Chloride 111 (96-114) mmol/L Carbon Dioxide 17 L (20-32) mmol/L BUN 28 (7-30) mg/dL Creatinine 1.7 H (0.5-1.5) mg/dL Glucose 100 (60-115) mg/dL Calcium 8.1 L (8.4-10.6) mg/dL Adrenal panel 07/26/23 Range/Units 06:28 Sodium 134 L (135-149) mmol/L Potassium 4.1 (3.6-5.1) mmol/L Chloride 111 (96-114) mmol/L Carbon Dioxide 17 L (20-32) mmol/L BUN 28 (7-30) mg/dL Creatinine 1.7 H (0.5-1.5) mg/dL Glucose 100 (60-115) mg/dL Calcium 8.1 L (8.4-10.6) mg/dL Total Bilirubin 2.2 H (0.1-1.5) mg/dL AST 67 H (12-35) U/L ALT 80 H (4-50) U/L Alkaline Phosphatase 138 (40-150) U/L Total Protein 5.6 L (6.0-8.3) g/dL Albumin 3.0 L (3.3-5.0) g/dL All other labs normal. Progress Note:A&P Assessment and plan (1) History of surgical procedure on mouth: Status: Acute Plan 78-year-old male admitted to the hospital with fever of unknown etiology. I discussed with the patient and the hospitalist that although his gallbladder ultrasound shows thickened gallbladder wall, patient clinically has no evidence of acute cholecystitis. Patient is able to tolerate regular diet and has bowel function. I would recommend obtaining direct bilirubin to see if his total bilirubin elevation is due to direct and indirect component. I would also recommend trending liver function tests. Patient's oral surgery was complicated by postoperative bleeding and patient could have had a hematoma that became infected. I recommended to obtain CT of neck soft tissue to evaluate for surgical abscess. I discussed with the patient that I did not recommend proceeding with laparoscopic cholecystectomy at this time. Patient will continue on antibiotics and can advance to his post oral surgery diet. Since patient's last bowel movement was 3 days ago, I would also recommend starting him on laxatives.
--- NOTE | 2023-07-26 11:46 | CT_ITS ---
Patient: JEFERSON CASSIDY Facility:?[facility] Patient ID:?[id number] Site Patient ID:?[id number]. Site :?[id number] Study:?CT-ST Neck W/IV-07/26/2023 12:44:53 PM Ordering Physician:MARY Final Report: INDICATION: Fever. Recent right neck lymph node dissection. History of base of tongue cancer. TECHNIQUE: CT of the neck soft tissues performed with IV contrast. Contrast: 132 cc Isovue 370. COMPARISON: CT neck soft tissue 05/21/2023. FINDINGS: Postsurgical changes of right neck lymph node dissection. There is haziness throughout the right neck soft tissues, without discrete drainable fluid collection identified. The parotid and submandibular glands appear unremarkable. Thyroid gland appears unremarkable. No new or increasing suspicious lymphadenopathy. The pharynx is partially obscured by dental amalgam artifact and motion artifact. Mild oropharyngeal and hypopharyngeal edema is present. No definite hyperenhancing lesion. The supraglottic, glottic and infraglottic spaces appear preserved. Visualized vasculature appears grossly intact. Small pleural effusions. Left scleral buckle. Thinning of the ocular lenses. Mild paranasal sinus mucosal disease. IMPRESSION: 1. Interval postsurgical changes of right neck lymph node dissection. Haziness throughout the right neck soft tissues without discernible drainable fluid collection. This could represent postoperative change/edema with or without superimposed infection. No drainable abscess. 2. No new or increasing lymphadenopathy. 3. Mild pharyngeal edema may be reactive. The pharynx is suboptimally visualized due to dental amalgam and motion artifact. Please note that all CT scans at this facility use dose modulation, iterative reconstruction, and/or weight-based dosing when appropriate to reduce radiation dose to as low as reasonably achievable. Dictated by Berny Rodriguez MD @ 07/26/2023 1:02:44 PM Signed by:?Berny Rodriguez MD @07/26/2023 1:02:44 PM (Electronic Signature)
[2023-07-26 12:35] LABS: Bilirubin Direct* 1.7 mg/dL (0.0-0.5)
[2023-07-26 12:36] LABS: Gamma Glutamyl Transpeptidase* 213 U/L (8-55)
[2023-07-26] MEDS: polyethylene glycoL 3350 17 GM PACK PO ×2 (13:00→18:50)
[2023-07-26] MEDS: ACETAMINOPHEN 500 MG TABLET 1000 MG PO (13:00)
[2023-07-26] MEDS: SENNOSIDES 1 TAB TABLET PO ×2 (13:00→20:30)
--- NOTE | 2023-07-26 13:56 | MR_ITS ---
Patient: JEFERSON CASSIDY Facility:?[facility] Patient ID:?[id number] Site Patient ID:?[id number]. Site :?[id number] Study:?MRI-Abdomen MRCP WO-07/26/2023 6:08:02 PM Ordering Physician:YVES HERNANDEZ Final Report: INDICATION: Fever. Abdominal pain. COMPARISON: Abdominal ultrasound dated [address] scan of the chest, abdomen, and pelvis dated 24 July 2023. TECHNIQUE: MRCP with heavily T2 weighted 2D and 3D MRCP images. No gadolinium administered. T1 and T2 weighted images also performed. Findings : No fatty infiltration of the liver. No focal abnormalities identified in the visualized portions of the liver, spleen, pancreas, adrenal glands, and kidneys. No hydronephrosis. Pericholecystic edema and mild gallbladder wall thickening. No gallstones identified. No intra or extrahepatic bile duct dilation with the common bile duct measuring 4 mm. No filling defects in the biliary system. Normal size of the main pancreatic duct. No adenopathy. Small hiatal hernia. Impression : 1. No bile duct dilation. No choledocholithiasis. Normal size of the main pancreatic duct. 2. Pericholecystic edema and mild gallbladder wall thickening may represent cholecystitis. Dictated by Caesar Jane MD @ 07/28/2023 6:41:21 PM Signed by:?Caesar Jane MD @07/28/2023 6:41:21 PM (Electronic Signature)
--- NOTE | 2023-07-26 14:09 | PC.NURSE ---
End of Shift Note: Patient has been up to the chair for a short time. Has been ambulating to the BR. Did have to have a new IV started as previous one came out. Is getting IV abo. Went to CT and when he returned was a little more sob and wheezing when he returned. Not sure if it was just from getting up and down for the scan or what caused it. Did take a bit for him to recover. Will continue to monitor until next shift arrives.
--- NOTE | 2023-07-26 14:37 | PM.IMPN1 ---
Progress Note: A&P Assessment and plan (1) History of surgical procedure on mouth: Problem details: tongue surgery with post op bleed [facility] 06/21/23 and started post op rads Status: Acute (2) Fever of unknown origin: Problem details: Onset right after radiation therapy on 07/23 with witnessed rigors, high risk for bacteremia fever all night of admission; now afebrile, but a little weak. vitally stable. did walk a little with OT/PT Continue Zosyn, added vanc am of 07/24 Continue IVF, received 2.5 L in ED -100cc/hr NS Tylenol as needed for fever With new LFT elevation - question transaminitis vs gallbladder as source of infection. getting MRCP pm of 07/[address] ordered 07/25 to r/o surgical site infection; reassuring. 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 status post right base of tongue resection and right neck lymph node dissection on 06/21/2023 Intensity modulated radiation therapy to the base of tongue, right neck levels IB-V, left neck levels II-V and right tonsil initiated on July 22, 2023; anticipated through August 30, 2023 with concurrent weekly carboplatin Followed by [facility] Status: Acute (4) Adenocarcinoma of left lung: Problem details: Stage I A 3, clinical T1c N0 M0 adenocarcinoma of the left upper lung SBRT to left upper lung cancer to initiated on July 25, 2023; anticipated date of completion is on July 31, 2023 Followed by [facility] Status: Acute (5) CKD (chronic kidney disease): Problem details: Creatinine 1.9, most recent 1.3 Avoid nephrotoxic medications, would hold allopurinol and lisinopril if currently taking these, renally dose antibiotics Continue to monitor Status: Chronic (6) Renal insufficiency: Problem details: improving 1.9 --> 1.3 Status: Acute (7) Diabetes mellitus: Problem details: Home med list does not include any oral medications or insulin Most recent A1c 5.9 in June Will monitor with glucose checks ACHS, deferring insulin sliding scale at this time, diabetic diet Status: Chronic (8) Oral pain: Problem details: Chronic, oral pain and sore throat, worsened postoperatively recently This evening he is unable to tell me which pain medication helps him in addition to amitriptyline at bedtime Status: Acute (9) Anxiety: Status: Acute Subjective Date Seen: 07/26/23 Interval history: Daily Progress Note - Hospital Medicine #: 3 CC: rigors; febrile illness. current cancer patient/XRT - new LFT elevation OVERNIGHT UPDATES FROM STAFF & MED, LAB, IMAGING UPDATES afebrile now for 24 hours. Tmax 99.7 feels less crappy Objective: NAD. afebrile when I meet him. Vitals: see above Lungs: Clear. Cardiac: S1S2. abdomen: soft. obese. no RUQ tenderness to palpation. CBC reflects a white blood cell count that went from 13.9 down to 8.3 --> 6.73 Hemoglobin dropped to 9's Platelet count is stable Sodium 134, creatinine is still elevated 1.9 but better at 1.7. Baseline 1.3 mild acidotic with bicarb at 17 Glucose 100 Lactate has now normalized LFT new elevation with elevated direct bili CRP less than 0.5 up to 4.3 and up again to 5.5 Procalcitonin 1.3-2.7 --> 1.6 CT reviewed Blood cultures areNGTD. Urine culture NGTD RUQ u/s: Nonspecific diffuse gallbladder wall thickening. Interpretation is confounded by gallbladder contraction. Gallbladder wall thickening could be due to underlying liver disease. No evidence of cholelithiasis or other sonographic findings to indicate acute cholecystitis. Soft tissue neck with contrast ( ordered despite slight XIOMARA): 1. Interval postsurgical changes of right neck lymph node dissection. Haziness throughout the right neck soft tissues without discernible drainable fluid collection. This could represent postoperative change/edema with or without superimposed infection. No drainable abscess. 2. No new or increasing lymphadenopathy. 3. Mild pharyngeal edema may be reactive. The pharynx is suboptimally visualized due to dental amalgam and motion artifact. Disposition/Potential discharge - Likely to return to previous living situation. Today I spent 50minutes seeing the patient, reviewing [facility] and EPIC notes/diagnostics, discussing the care plan with our care time that includes social work, PT/OT, pharmacy, RT, assisted and documenting my impressions and plan in the medical record. Exam Const: Vital Signs, click to edit/add: Vital Signs - 24 hr 07/25/23 15:00 07/25/23 15:30 07/25/23 19:00 Temperature 98.7 F 99.1 F Pulse Rate 67 Pulse Rate [Pulse Oximeter] 70 88 Pulse Rate [orthos tatic lying Right Radial] Pulse Rate [orthos tatic sitting Righ t Radial] Pulse Rate [orthos tatic standing Rig ht Radial] Respiratory Rate 16 24 Blood Pressure [Le ft Arm] Blood Pressure [Ri ght Arm] 145/89 H 122/71 Blood Pressure [or thostatic lying Ri ght Arm] Blood Pressure [or thostatic sitting Right Arm] Blood Pressure [or thostatic standing Right Arm] Pulse Oximetry 94 91 Oxygen Delivery Me thod Room Air Room Air Oxygen Flow Rate 07/25/23 22:52 07/25/23 23:00 07/25/23 23:00 Temperature 97.9 F Pulse Rate 71 Pulse Rate [Pulse Oximeter] 83 Pulse Rate [orthos tatic lying Right Radial] Pulse Rate [orthos tatic sitting Righ t Radial] Pulse Rate [orthos tatic standing Rig ht Radial] Respiratory Rate 22 22 Blood Pressure [Le ft Arm] 140/56 H Blood Pressure [Ri ght Arm] Blood Pressure [or thostatic lying Ri ght Arm] Blood Pressure [or thostatic sitting Right Arm] Blood Pressure [or thostatic standing Right Arm] Pulse Oximetry 91 93 Oxygen Delivery Me thod Room Air Nasal Cannula Oxygen Flow Rate 0.5 07/25/23 23:34 07/26/23 02:24 07/26/23 07:00 Temperature 99.7 F H Pulse Rate Pulse Rate [Pulse Oximeter] 73 81 Pulse Rate [orthos tatic lying Right Radial] Pulse Rate [orthos tatic sitting Righ t Radial] Pulse Rate [orthos tatic standing Rig ht Radial] Respiratory Rate 24 20 Blood Pressure [Le ft Arm] Blood Pressure [Ri ght Arm] 130/63 132/74 Blood Pressure [or thostatic lying Ri ght Arm] Blood Pressure [or thostatic sitting Right Arm] Blood Pressure [or thostatic standing Right Arm] Pulse Oximetry 93 92 97 Oxygen Delivery Me thod Nasal Cannula Room Air Oxygen Flow Rate 1 07/26/23 07:00 07/26/23 07:00 07/26/23 08:06 Temperature Pulse Rate Pulse Rate [Pulse Oximeter] Pulse Rate [orthos tatic lying Right Radial] 81 Pulse Rate [orthos tatic sitting Righ t Radial] 79 Pulse Rate [orthos tatic standing Rig ht Radial] 100 Respiratory Rate 20 Blood Pressure [Le ft Arm] Blood Pressure [Ri ght Arm] Blood Pressure [or thostatic lying Ri ght Arm] 132/74 Blood Pressure [or thostatic sitting Right Arm] 134/103 H Blood Pressure [or thostatic standing Right Arm] 126/74 Pulse Oximetry 97 Oxygen Delivery Me thod Room Air Oxygen Flow Rate 07/26/23 09:54 07/26/23 11:00 Temperature 99.2 F Pulse Rate 61 Pulse Rate [Pulse Oximeter] 66 Pulse Rate [orthos tatic lying Right Radial] Pulse Rate [orthos tatic sitting Righ t Radial] Pulse Rate [orthos tatic standing Rig ht Radial] Respiratory Rate 20 Blood Pressure [Le ft Arm] Blood Pressure [Ri ght Arm] Blood Pressure [or thostatic lying Ri ght Arm] Blood Pressure [or thostatic sitting Right Arm] Blood Pressure [or thostatic standing Right Arm] Pulse Oximetry 95 Oxygen Delivery Me thod Room Air Oxygen Flow Rate Labs Labs: Laboratory Results - last 24 hr 07/25/23 07/25/23 07/26/23 06:13 14:43 06:28 WBC 6.73 RBC 3.14 L Hgb 9.8 L Hct 29.9 L MCV 95 MCH 31 MCHC 33 RDW Coeff of Renny 15.3 Plt Count 155 Neut % (Auto) 86.6 H Lymph % (Auto) 3.3 L [place] % (Auto) 7.0 Eos % (Auto) 2.7 Baso % (Auto) 0.1 Neut # (Auto) 5.80 Lymph # (Auto) 0.20 L [place] # (Auto) 0.50 Eos # (Auto) 0.18 Baso # (Auto) 0.01 Abs Immat Gran (auto) 0.02 Imm/Tot Granulo (auto) 0.3 VBG pH 7.356 VBG pCO2 33 L VBG pO2 77.9 H VBG HCO3 19 L Sodium 134 L Potassium 4.1 Chloride 111 Carbon Dioxide 17 L Anion Gap 6 L BUN 28 Creatinine 1.7 H Estimated Creat Clear 35.78 Estimated GFR 40 Glucose 100 Hemoglobin A1c 5.8 H Calcium 8.1 L Total Bilirubin 2.2 H Direct Bilirubin 1.7 H GGT 213 H AST 67 H ALT 80 H Alkaline Phosphatase 138 C-Reactive Protein 5.5 H Total Protein 5.6 L Albumin 3.0 L Procalcitonin 1.61 H Lab Acknowledgement Test Added 07/26/23 12:01 WBC RBC Hgb Hct MCV MCH MCHC RDW Coeff of [place]enny Plt Count Neut % (Auto) Lymph % (Auto) [place] % (Auto) Eos % (Auto) Baso % (Auto) Neut # (Auto) Lymph # (Auto) [place] # (Auto) Eos # (Auto) Baso # (Auto) Abs Immat Gran (auto) Imm/Tot Granulo (auto) VBG pH VBG pCO2 VBG pO2 VBG HCO3 Sodium Potassium Chloride Carbon Dioxide Anion Gap BUN Creatinine Estimated Creat Clear Estimated GFR Glucose Hemoglobin A1c Calcium Total Bilirubin Direct Bilirubin GGT AST ALT Alkaline Phosphatase C-Reactive Protein Total Protein Albumin Procalcitonin Lab Acknowledgement Test Added
[2023-07-26] MEDS: AMITRIPTYLINE 25 MG TABLET 50 MG PO (18:14)
[2023-07-26] MEDS: SENNOSIDES/DOCUSATE TABLET 1 TAB PO (18:50)
[2023-07-26] MEDS: ENOXAPARIN 30 MG/0.3ML INJ SUBCUT (20:30)
[2023-07-26] MEDS: SODIUM CHLORIDE 0.9 % (FLUSH) 10 ML SYRINGE 5 ML IVF (20:30)
[2023-07-27] MEDS: OMEPRAZOLE 20 MG CAPSULE DR PO ×3 (00:18→16:23)
[2023-07-27] MEDS: PIPERACILLIN/TAZOBACTAM 3.375 GM in 0.9 % SODIUM CHLORIDE Mini-bag 100 ML IVPB ×4 (01:58→19:56)
[2023-07-27] MEDS: 0.9 % SODIUM CHLORIDE 1000 ml 1,000 ML 100 ML IV (01:59)
[2023-07-27 03:00] VITALS: BP 92/50; PULSE 111; RESP 22; TEMP 36.5; O2SAT 94
--- NOTE | 2023-07-27 06:21 | PC.NURSE ---
End of shift [id number]: Alert and oriented x 4. Denied any pain this shift. Patient reported feeling increased heartburn and reflux which is causing him to cough. Patient requested omeprazole, he states that he takes one tab daily but can take an extra pill daily as needed for increased heartburn. One time order received, patient reports medication was effective. Utilizes call light appropriately. Ambulates with SBA with walker and gait belt.
[2023-07-27 06:31] LABS: HCO3 VBG 20 mmol/L (21-28); Lactate* 0.7 mmol/L (0.5-1.9); PCO2 VBG 34 mmHG (40-50); PO2 VBG 52.5 mmHG (25-47); pH VBG 7.376 (7.32-7.43)
[2023-07-27 06:42] LABS: Basophils Absolute Auto 0.02 K/uL (0.00-0.30); Basophils Percent Auto 0.3 % (0.0-3.0); Eosinophils Absolute Auto 0.29 K/uL (0.00-0.50); Eosinophils Percent Auto 4.8 % (0.0-7.0); Hematocrit 29.4 % (37.0-53.0); Hemoglobin* 9.8 gm/dL (13.5-17.5); Immature Granulocytes Abs Auto 0.03 K/uL (0.00-0.30); Immature Granulocytes Pct Auto 0.5 %; Lymphocytes Percent Auto 4.3 % (20-44); Mean Corpuscular HGB Conc 33 gm/dL (32-36); Mean Corpuscular Hemoglobin 31 pg (26-34); Mean Corpuscular Volume 94 fL (80-100); Monocytes Percent Auto 9.4 % (0.0-11.0); Neutrophils Percent Auto 80.7 % (42.0-72.0); Platelet Count* 164 K/uL (140-440); RDW Coefficient of Variation % 15.5 % (11.5-15.5); Red Blood Count 3.13 m/uL (4.30-5.90); White Blood Count* 6.06 K/uL (4.50-11.00)
[2023-07-27 06:44] LABS: Slide Review Reflex No
[2023-07-27 06:58] LABS: Chloride* 112 mmol/L (96-114)
[2023-07-27 06:59] LABS: Albumin* 2.9 g/dL (3.3-5.0); Potassium* 3.9 mmol/L (3.6-5.1); Sodium* 135 mmol/L (135-149)
[2023-07-27 07:00] VITALS: BP 143/76; PULSE 64; PULSE 74; RESP 18; TEMP 37.1; O2SAT 95
[2023-07-27 07:01] LABS: Creatinine* 1.5 mg/dL (0.5-1.5); Est. Creatinine Clearance* 40.56; Estimated Glomerular Filt Rate 47 ml/min
[2023-07-27 07:02] LABS: Alanine Aminotransferase* 82 U/L (4-50); Alkaline Phosphatase* 178 U/L (40-150); Anion Gap 5 mEq/L (7-15); Aspartate Amino Transferase* 58 U/L (12-35); Bilirubin Direct* 2.6 mg/dL (0.0-0.5); Bilirubin Total* 3.3 mg/dL (0.1-1.5); Blood Urea Nitrogen* 23 mg/dL (7-30); Carbon Dioxide* 18 mmol/L (20-32); Glucose* 102 mg/dL (60-115); Phosphorus* 2.5 mg/dL (2.5-4.5); Total Protein* 5.7 g/dL (6.0-8.3)
[2023-07-27 07:03] LABS: Calcium* 8.4 mg/dL (8.4-10.6)
[2023-07-27 07:05] LABS: C Reactive Protein* 4.6 mg/dL (0.5-1.0)
[2023-07-27 07:15] LABS: Procalcitonin* 1.03 ng/mL (<0.50)
[2023-07-27] MEDS: SENNOSIDES 1 TAB TABLET PO (09:11)
[2023-07-27] MEDS: polyethylene glycoL 3350 17 GM PACK PO (09:40)
[2023-07-27 11:00] VITALS: BP 137/76; PULSE 73; RESP 20; TEMP 37.1; O2SAT 97
--- NOTE | 2023-07-27 13:24 | XR_ITS ---
Patient: JEFERSON CASSIDY Facility:?[facility] Patient ID:?[id number] Site Patient ID:?[id number]. Site :?[id number] Study:?XRay-Chest PORTABLE ONE VIEW-07/27/2023 3:19:09 PM Ordering Physician:SHANNAN Final Report: INDICATION: COUGH,WHEEZING TECHNIQUE: Chest 1 views. COMPARISON: Chest x-ray July 24, 2023. IMPRESSION: Cardiovascular and mediastinum: Heart size and vasculature are normal in caliber and appearance. Lungs and pleural spaces: Central vascular congestion and interstitial prominence suspicious for mild interstitial edema. Right greater than left basilar opacities which may represent atelectasis or developing consolidation. Bones and soft tissues: Healed fractures of the right posterolateral 5th and 6th ribs. Dictated by Sunil Mckeon MD @ 07/27/2023 4:28:49 PM Signed by:?Sunil Mckeon MD @07/27/2023 4:28:49 PM (Electronic Signature)
[2023-07-27 14:50] LABS: HCO3 VBG 19 mmol/L (21-28); PCO2 VBG 36 mmHG (40-50); PO2 VBG 36.7 mmHG (25-47); pH VBG 7.333 (7.32-7.43)
[2023-07-27] MEDS: FUROSEMIDE 10 MG/ML inj 40 MG IVP (14:54)
[2023-07-27 15:00] VITALS: BP 150/89; PULSE 74; PULSE 77; RESP 22; TEMP 37.1; O2SAT 94
[2023-07-27 15:34] LABS: Troponin I* 0.01 ng/mL (0.01-0.04)
[2023-07-27] MEDS: ACETAMINOPHEN 500 MG TABLET 1000 MG PO (16:23)
--- NOTE | 2023-07-27 18:14 | P.DS_ITS ---
Transfer Discharge Sum: Prov Provider Time Seen by Provider: 11:50 Date Seen: 07/27/23 Date of admission: 07/25/23 09:43 Primary care physician: Faheem Garland MD Consults: 07/24/23 22:52 Consult to Occupational Therapy [CONS] Routine Comment: Reason(s) for OT Consult:: Evaluate and Treat Any Restrictions?:: No Restrictions Consult to Physical Therapy [CONS] Routine Comment: Reason(s) for PT Consult:: Evaluate and Treat Any Restrictions?:: No Restrictions Consult to [facility] [CONS] Routine Comment: Reason for Consult:: Social Service Consult 07/24/23 23:12 Consult to Physical Therapy [CONS] Routine Comment: Reason(s) for PT Consult:: Evaluate and Treat Any Restrictions?:: Unknown Attending physician on discharge: Louise Benites Anticipated date of transfer: 07/27/23 Receiving physician/facility: [facility], Dr. Min GI. DS: Diagnosis Discharge Diagnosis (1) Fever of unknown origin: Status: Acute Problem details: Onset right after radiation therapy on 07/23 with witnessed rigors, high risk for bacteremia fever all night of admission; now afebrile, but a little weak. vitally stable. did walk a little with OT/PT Continue Zosyn, added vanc am of 07/24 Continue IVF, received 2.5 L in ED -100cc/hr NS Tylenol as needed for fever With new LFT elevation - question transaminitis vs gallbladder as source of infection. getting MRCP pm of 07/[address] ordered 07/25 to r/o surgical site infection; reassuring. 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 status post right base of tongue resection and right neck lymph node dissection on 06/21/2023 Intensity modulated radiation therapy to the base of tongue, right neck levels IB-V, left neck levels II-V and right tonsil initiated on July 22, 2023; anticipated through August 30, 2023 with concurrent weekly carboplatin Followed by [facility] (3) History of surgical procedure on mouth: Status: Acute Problem details: tongue surgery with post op bleed [facility] 06/21/23 and started post op rads (4) Adenocarcinoma of left lung: Status: Acute Problem details: Stage I A 3, clinical T1c N0 M0 adenocarcinoma of the left upper lung SBRT to left upper lung cancer to initiated on July 25, 2023; anticipated date of completion is on July 31, 2023 Followed by [facility] (5) CKD (chronic kidney disease): Status: Chronic Problem details: Creatinine 1.9, most recent 1.3 Avoid nephrotoxic medications, would hold allopurinol and lisinopril if currently taking these, renally dose antibiotics Continue to monitor (6) Renal insufficiency: Status: Acute Problem details: improving 1.9 --> 1.3 (7) Diabetes mellitus: Status: Chronic Problem details: Home med list does not include any oral medications or insulin Most recent A1c 5.9 in June Will monitor with glucose checks ACHS, deferring insulin sliding scale at this time, diabetic diet (8) Oral pain: Status: Acute Problem details: Chronic, oral pain and sore throat, worsened postoperatively recently This evening he is unable to tell me which pain medication helps him in addition to amitriptyline at bedtime (9) Hyperlipidemia: Status: Chronic Problem details: Pharmacy to confirm statin (10) Hypertension: Status: Chronic Problem details: Pharmacy to confirm home medications. Would hold lisinopril if currently taking given elevated creatinine (11) GERD (gastroesophageal reflux disease): Status: Chronic Problem details: Omeprazole daily (12) Anxiety: Status: Acute (13) Gout: Status: Chronic Problem details: History of, not currently active Pharmacy to confirm if currently taking allopurinol. Hold for elevated creatinine Transfer Discharge Sum: Med Medications Active and Home Medications: Home Medications acetaminophen 500 mg capsule 1,000 mg PO Q6H PRN 07/15/23 [History Confirmed 07/24/23] allopurinol 300 mg tablet 300 mg PO QDAY 07/15/23 [History Confirmed 07/24/23] amitriptyline 50 mg tablet 50 mg PO HS 07/15/23 [History Confirmed 07/25/23] amlodipine 10 mg tablet 10 mg PO DAILY 07/15/23 [History Confirmed 07/25/23] esomeprazole magnesium 20 mg capsule,delayed release 20 mg PO DAILY 07/15/23 [History Confirmed 07/25/23] olmesartan 40 mg tablet 40 mg PO DAILY 07/15/23 [History Confirmed 07/25/23] ondansetron HCl 4 mg tablet 4 mg PO Q8H #60 tabs 07/15/23 [Rx Confirmed 07/24/23] prochlorperazine maleate 5 mg tablet (Compazine) 5 mg PO BID PRN nausea and vomiting #60 tabs 07/15/23 [Rx Confirmed 07/24/23] sennosides 8.6 mg tablet (Natural Senna Laxative) 8.6 mg PO DAILY 07/15/23 [History Confirmed 07/25/23] acetaminophen 300 mg-codeine 30 mg tablet 1 tab PO BID PRN chronic pain 07/24/23 [History Confirmed 07/25/23] fluoride (sodium) 1.1 % dental gel PO DAILY 07/24/23 [History] omeprazole 20 mg capsule,delayed release 20 - 40 mg PO DAILY 07/24/23 [History Confirmed 07/24/23] Active Medications Acetaminophen (Acetaminophen 500 Mg Tablet) 1,000 mg PO Q6H PRN PRN Reason: Fever, pain Last Admin: 07/27/23 16:23 Dose: 1,000 mg Amitriptyline HCl (Amitriptyline 25 Mg Tablet) 50 mg PO DAILY@1800 [facility] Last Admin: 07/26/23 18:14 Dose: 50 mg Bisacodyl (Bisacodyl 10 Mg Supp.Rect) 10 mg CA DAILY PRN Enoxaparin Sodium (Enoxaparin 30 Mg/0.3ml Inj) 30 mg SUBCUT HS [facility] Last Admin: 07/26/23 20:30 Dose: 30 mg Piperacillin Sod/Tazobactam (Sod 3.375 gm/ Sodium Chloride) 100 mls @ 200 mls/hr IVPB Q6H [facility] Last Infusion: 07/27/23 16:50 Dose: Infused Vancomycin HCl 1,500 mg/ (Sodium Chloride) 515 mls @ 343.333 mls/hr IVPB Q24H [facility] Last Infusion: 07/27/23 15:23 Dose: Infused Melatonin (Melatonin 3 Mg Tablet) 3 - 6 mg PO HS PRN Morphine Sulfate (Morphine 2 Mg/Ml Inj) 2 mg IVP Q2H PRN PRN Reason: Pain Omeprazole (Omeprazole [address]) 20 mg PO DAILY [facility] Last Admin: 07/27/23 09:11 Dose: 20 mg Ondansetron HCl (Ondansetron 2 Mg/Ml Inj) 4 mg IVP Q4H PRN PRN Reason: Nausea Oxycodone HCl (Oxycodone 5 Mg Tablet) 2.5 - 5 mg PO Q4H PRN PRN Reason: Pain Polyethylene Glycol (Polyethylene Glycol 3350 17 Gm Pack) 17 gm PO DAILY PRN Last Admin: 07/26/23 18:50 Dose: 17 gm Polyethylene Glycol (Polyethylene Glycol 3350 17 Gm Pack) 17 gm PO DAILY [facility] Last Admin: 07/27/23 09:40 Dose: 17 gm Prochlorperazine (Prochlorperazine 10 Mg Tablet) 5 mg PO Q6H PRN PRN Reason: Nausea vomiting Senna/Docusate Sodium (Sennosides/Docusate Tablet) 1 tab PO DAILY PRN Last Admin: 07/26/23 18:50 Dose: 1 tab Sennosides (Sennosides 1 Tab Tablet) 1 tab PO BID [facility] Last Admin: 07/27/23 09:11 Dose: 1 tab Sodium Chloride (Sodium Chloride 0.9 % (Flush) 10 Ml Syringe) 5 ml IVF .FLUSH PRN Sodium Chloride (Sodium Chloride 0.9 % (Flush) 10 Ml Syringe) 5 ml IVF BID [facility] Last Admin: 07/27/23 09:12 Dose: Not Given Transfer Discharge Sum: Hosp Hospital Course Hospital course: Celso Enamorado is a 78 year old male with past medical history significant for recently diagnosed and 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 He then had significant rigors. He was febrile upon presentation with leukocytosis, not neutropenic. Urine culture and blood cultures x2 were drawn and he was started on IV Zosyn and fluids. The 1st night in the hospital he did well and felt a little better by morning, but on the 2nd hospital day he was noted to have elevated LFTs, which was a new finding. Right upper quadrant ultrasound was obtained which showed a thickened gallbladder in general surgery was consulted. Due to the recent resection of his right neck, soft tissue of neck CT was also obtained and did not show any abscess. MRCP showed possibility of acalculous cholecystitis however patient's abdominal exam was completely benign yesterday. Today he has a mildly positive Carey sign and LFTs are further elevated. He is also jaundiced and has scleral icterus. I spoke with our general surgeon and she noted that he is not a surgical candidate here due to his recent neck resection that we would be not be able to intubate him here. Other options would be ERCP or percutaneous cholecystostomy drain however we do not have the ability to do either of those here Patient and his were agreeable for him to go back to [facility]. I spoke with Dr. Min from GI at [facility] who accepted him in transfer. Also of note is that this afternoon he had a brief episode of substernal chest discomfort. This resolved on its own. It was not reproducible to palpation. Troponin drawn at that time is unremarkable. EKG done at that time is unremarkable. Chest x-ray showed central vascular congestion and interstitial prominence suspicious for mild interstitial edema. There may also be atelectasis or developing consolidation. He had been getting IV fluids which were stopped and I gave him a dose of IV Lasix. He remains on Zosyn and vancomycin. He is transferred to [facility] in stable condition for percutaneous cholecystostomy tube placement, which is not available at our facility. Time Spent with Patient Time attestation: Total time spent providing and/or coordinating transfer services: 1.5 hours Exam Narrative: Exam Narrative: General: No acute distress. Awake, alert, oriented. No pallor. Mild jaundice. Scleral icterus is present. Cough. Oropharynx: Clear. Mucous membranes moist. Cardiovascular: Regular rate and rhythm. No murmurs, gallops, or rubs]. Nontender to palpation. Respiratory: No respiratory distress. Clear to auscultation bilaterally. Abdomen: Bowel sounds present. Mildly distended, soft, mildly positive Carey sign. Extremities: 1+ bilateral pretibial edema. Const: Vital Signs, click to edit/add: Vital Signs - 24 hr 07/26/23 19:00 07/26/23 23:00 07/26/23 23:00 Temperature 98.7 F Pulse Rate Pulse Rate [Pulse Oximeter] 59 L 59 L Respiratory Rate 18 22 22 Blood Pressure [Le ft Arm] Blood Pressure [Ri ght Arm] 135/84 Pulse Oximetry 94 6 L Oxygen Delivery Me thod Room Air Room Air 07/26/23 23:00 07/26/23 23:34 07/27/23 03:00 Temperature 98.7 F 97.7 F Pulse Rate Pulse Rate [Pulse Oximeter] 81 111 H Respiratory Rate 22 22 Blood Pressure [Le ft Arm] 92/50 L Blood Pressure [Ri ght Arm] 153/61 H Pulse Oximetry 96 96 [facility] 07/27/23 07:00 07/27/23 07:00 07/27/23 07:00 Temperature 98.8 F Pulse Rate Pulse Rate [Pulse Oximeter] 74 74 Respiratory Rate 18 18 Blood Pressure [Le ft Arm] Blood Pressure [Ri ght Arm] 143/76 H Pulse Oximetry 95 95 [facility] 07/27/23 07:00 07/27/23 11:00 07/27/23 15:00 Temperature 98.7 F Pulse Rate 64 Pulse Rate [Pulse Oximeter] 73 Respiratory Rate 20 Blood Pressure [Le ft Arm] Blood Pressure [Ri ght Arm] 137/76 Pulse Oximetry 97 94 [facility] 07/27/23 15:00 07/27/23 15:00 07/27/23 15:00 Temperature 98.8 F Pulse Rate 77 Pulse Rate [Pulse Oximeter] 74 74 Respiratory Rate 22 22 Blood Pressure [Le ft Arm] Blood Pressure [Ri ght Arm] 150/89 H Pulse Oximetry 94 [facility] Transfer Discharge Sum: Data Data Completed and Pending Completed studies during hospitalization: 07/24/2023 EKG: Sinus arrhythmia, 85 beats per minute, occasional PVCs, nonspecific ST abnormality. Study: XRay-Chest PORTABLE-07/24/2023 5:56:15 PM Ordering Physician: BESS Final Report: INDICATION: Shortness of breath. COMPARISON: None available. TECHNIQUE: 1 view. FINDINGS: The patient is slightly rotated rightward. Medical Devices: None. Lung Volumes: Adequate inspiration. No significant atelectasis. Lungs: Clear lungs. Pleura and Pleural spaces: No significant pleural effusion. No pneumothorax. Mediastinum: Hiatus hernia. Bony Thorax and Soft Tissues: No significant incidental findings. Healed fractures of the right posterolateral 5th and 6th ribs. IMPRESSION: No imaging findings pertinent to the indication for the exam or significant unrelated findings. Incidental findings described in the body of the report. Dictated by Octaviano Jaramillo MD @ 07/25/2023 7:24:05 AM Signed by: Octaviano Jaramillo MD @07/25/2023 7:24:05 AM (Electronic Signature) Dictated By: Octaviano Jaramillo M.D. Signed By: 07/25/23 0749 DD/ 3 TD/TT: 07/25/2348 Study: CT-Chest/Abd/Pelvis W/ 122CC ISOVUE 370-07/24/2023 7:54:53 PM Ordering Physician: BESS Final Report: INDICATION: FEVER, UNKNOWN SOURCE, LUNG CA MARISA, LYMP METS SCC NO SOURCE. TECHNIQUE: CT chest, abdomen and pelvis acquired with 122cc Isovue 370 IV contrast. COMPARISON: None. FINDINGS: CHEST Lungs and pleura: 1.6 cm irregular nodular density in the left upper lobe (3/35). No effusions, thickening, or pneumothorax. No consolidation. Heart and vasculature: Heart size is normal. Thoracic aorta and pulmonary artery are normal in caliber. Coronary artery calcification. Lymph node/mediastinum: No mediastinal, hilar, or axillary adenopathy. Mildly enlarged right distal paraesophageal lymph node measuring 8 mm in short axis. Small to moderate-sized hiatal hernia. Chest wall: Normal. Bones: Old right lateral 5th and 6th rib fractures. No suspicious lesion. ABDOMEN AND PELVIS: Liver: Normal in caliber and attenuation. No masses. Gallbladder and bile ducts: Unremarkable. Pancreas: Fatty atrophy. No inflammation or mass. Spleen: Normal in caliber. No masses. Adrenal glands: Unremarkable. No masses. Kidneys: Two small nonobstructing right nephroliths, measuring up to 3 mm. Atrophic right kidney. GI tract: Normal in caliber and appearance. The appendix is not clearly visualized; however, there are no inflammatory changes in the right lower quadrant. Vasculature: Normal caliber abdominal aorta with mild atherosclerotic calcification. Mesenteric arteries are patent. Lymph nodes: No lymphadenopathy. Omentum/peritoneum/retroperitoneum/abdominal wall: No masses or infiltration. No free air or significant free fluid. Small fat-containing right inguinal hernia. Pelvic organs: Prostatomegaly. Bones: No suspicious bone lesions. IMPRESSION: 1. No acute finding within the chest, abdomen or pelvis. No finding to explain the patient`s fever. 2. 1.6 cm irregular nodular density in the left upper lobe. No prior study available for comparison. Malignancy can not be excluded. This could be further evaluated PET-CT, if not previously performed or if this is a new finding. 3. Small to moderate-sized hiatal hernia. 4. Small nonobstructing right nephroliths. No evidence for obstructive uropathy. 5. Prostatomegaly. 6. Nonspecific mildly enlarged right distal paraesophageal lymph node measuring 8 mm. Metastatic disease can not be entirely excluded given the history of malignancy. Please note that all CT scans at this facility use dose modulation, iterative reconstruction, and/or weight-based dosing when appropriate to reduce radiation dose to as low as reasonably achievable. Dictated by Jose Philip MD @ 07/24/2023 9:04:54 PM Signed by: Jose Philip MD @07/24/2023 9:04:54 PM (Electronic Signature) Dictated By: Jose Philip M.D. Signed By: 07/25/23 0750 DD/ 03 TD/TT: 07/25/23 0749 Study: US-Abdomen GB ONLY-07/26/2023 10:37:10 AM Ordering Physician: ARMANI REGAN Final Report: INDICATION: Fever. Abnormal LFTs. COMPARISON: CT 07/24/2023 TECHNIQUE: Limited sonographic examination of the gallbladder and CBD. FINDINGS: Gallbladder: Contracted. Free of stones or significant sludge. Apparent uniform diffuse gallbladder wall thickening. This may be in part related to gallbladder contraction. Gallbladder wall thickening is nonspecific and may be associated with coexisting liver disease, for example, in this patient with a history of abnormal LFTs. Negative sonographic Carey sign. CBD: 6mm Peritoneal Cavity: No significant ascites. Additional Findings: None. IMPRESSION: Nonspecific diffuse gallbladder wall thickening. Interpretation is confounded by gallbladder contraction. Gallbladder wall thickening could be due to underlying liver disease. No evidence of cholelithiasis or other sonographic findings to indicate acute cholecystitis. Dictated by Octaviano Jaramillo MD @ 07/26/2023 10:46:18 AM Signed by: Octaviano Jaramillo MD @07/26/2023 10:46:18 AM (Electronic Signature) Dictated By: Octaviano Jaramillo M.D. Signed By: 07/26/23 1117 DD/ 1046 TD/TT: 07/26/23 1116 Study: CT-ST Neck W/IV-07/26/2023 12:44:53 PM Ordering Physician: JASS Final Report: INDICATION: Fever. Recent right neck lymph node dissection. History of base of tongue cancer. TECHNIQUE: CT of the neck soft tissues performed with IV contrast. Contrast: 132 cc Isovue 370. COMPARISON: CT neck soft tissue 05/21/2023. FINDINGS: Postsurgical changes of right neck lymph node dissection. There is haziness throughout the right neck soft tissues, without discrete drainable fluid collection identified. The parotid and submandibular glands appear unremarkable. Thyroid gland appears unremarkable. No new or increasing suspicious lymphadenopathy. The pharynx is partially obscured by dental amalgam artifact and motion artifact. Mild oropharyngeal and hypopharyngeal edema is present. No definite hyperenhancing lesion. The supraglottic, glottic and infraglottic spaces appear preserved. Visualized vasculature appears grossly intact. Small pleural effusions. Left scleral buckle. Thinning of the ocular lenses. Mi ld paranasal sinus mucosal disease. IMPRESSION: 1. Interval postsurgical changes of right neck lymph node dissection. Haziness throughout the right neck soft tissues without discernible drainable fluid collection. This could represent postoperative change/edema with or without superimposed infection. No drainable abscess. 2. No new or increasing lymphadenopathy. 3. Mild pharyngeal edema may be reactive. The pharynx is suboptimally visualized due to dental amalgam and motion artifact. Please note that all CT scans at this facility use dose modulation, iterative reconstruction, and/or weight-based dosing when appropriate to reduce radiation dose to as low as reasonably achievable. Dictated by Berny Rodriguez MD @ 07/26/2023 1:02:44 PM Signed by: Berny Rodriguez MD @07/26/2023 1:02:44 PM (Electronic Signature) Dictated By: Crow Rodriguez M.D. Signed By: 07/26/23 1306 DD/ 1302 TD/TT: 07/26/23 1305 Study: MRI Abdomen MRCP WO-07/26/2023 6:08:02 PM Ordering Physician: YVES REGAN Preliminary Report: Comparison: Gallbladder ultrasound from the same day and CT chest, abdomen, and pelvis 07/24/2023 Preliminary Impression: Gallbladder wall thickening up to 6 mm. No intraluminal filling defect identified within the gallbladder or common bile duct. No biliary ductal dilatation. Acute acalculous cholecystitis can not be excluded. Unremarkable liver, spleen, and adrenal glands. Fatty atrophy of the pancreas. No suspicious renal lesion. Moderate-sized hiatal hernia. Read by: Jose Philip MD @ 07/26/2023 19:26:41 Study: XRay Chest PORTABLE ONE VIEW-07/27/2023 3:19:09 PM Ordering Physician: PRAKASH Final Report: INDICATION: COUGH,WHEEZING TECHNIQUE: Chest 1 views. COMPARISON: Chest x-ray July 24, 2023. IMPRESSION: Cardiovascular and mediastinum: Heart size and vasculature are normal in caliber and appearance. Lungs and pleural spaces: Central vascular congestion and interstitial prominence suspicious for mild interstitial edema. Right greater than left basilar opacities which may represent atelectasis or developing consolidation. Bones and soft tissues: Healed fractures of the right posterolateral 5th and 6th ribs. Dictated by Sunil Mckeon MD @ 07/27/2023 4:28:49 PM (Electronic Signature) Discharge Plan Discharge Disposition: [facility] Discharge Location: [facility] Date of Admission: 07/25/23 09:43 Attending Provider on Discharge: Louise Benites Primary Care Provider: Faheem Garland Condition: Unchanged Discharge Orders: Transfer of Care to Other Hospital (ORDER); Ordered 07/27/23 Ordered By: Louise Benites Oxygen: No Urinary Catheter: No Services not available here: GI, percutaneous cholecystostomy tube placement
[2023-07-27] MEDS: AMITRIPTYLINE 25 MG TABLET 50 MG PO (18:21)
--- NOTE | 2023-07-27 18:58 | PC.NURSE ---
End of Shift: Patient pleasant and cooperative. Afebrile. Up to chair and bathroom with SBA. Tolerating clear liquids with no nausea. C/o SOB and lung sounds with wheezes around 1320, updated MD. C/o of chest pain 5/10 shortly after. EKG, chest x-ray, Lasix given and labs done. O2 sats greater than 90% on room air.
[2023-07-27 19:00] VITALS: BP 130/74; PULSE 57; RESP 24; TEMP 37; O2SAT 95
[2023-07-27] MEDS: ENOXAPARIN 30 MG/0.3ML INJ SUBCUT (19:57)
[2023-07-27] MEDS: SODIUM CHLORIDE 0.9 % (FLUSH) 10 ML SYRINGE 5 ML IVF (19:58)
[2023-07-27 23:00] VITALS: PULSE 55
== END 2023-07-27 23:23 | disposition short-term general hospital (02) | DRG 864 ==
LOC: ED 21:47 → MEDSURG 22:20
PROVIDERS: Family Medicine; Physician Assistant; Admitting Provider Family Medicine; Emergency Provider Family Medicine; PCP Family Medicine; Visit Provider Family Medicine
DX: R50.9 Fever, unspecified (principal); C34.12 Malignant neoplasm of upper lobe, left bronchus or lung; C77.0 Secondary and unspecified malignant neoplasm of lymph nodes of head, face and neck; C01 Malignant neoplasm of base of tongue; K82.9 Disease of gallbladder, unspecified; R74.01 Elevation of levels of liver transaminase levels; G89.29 Other chronic pain; M54.2 Cervicalgia; I12.9 Hypertensive chronic kidney disease with stage 1 through stage 4 chronic kidney disease, or unspecified chronic kidney disease; E11.22 Type 2 diabetes mellitus with diabetic chronic kidney disease; N18.9 Chronic kidney disease, unspecified; K21.9 Gastro-esophageal reflux disease without esophagitis; F41.9 Anxiety disorder, unspecified; M1A.9XX0 Chronic gout, unspecified, without tophus (tophi); N20.0 Calculus of kidney; K13.79 Other lesions of oral mucosa; R09.89 Other specified symptoms and signs involving the circulatory and respiratory systems
CPT/HCPCS: 36415; 70491; 71045; 71260; 74177; 74181; 76705; 80048; 80053; 80069; 80076; 81001; 82248; 82803; 82962; 82977; 83036; 83605; 83880; 84145; 84484; 85025; 85027; 86140; 87040; 87086; 87631; 93005; 94761; 96376; 96413; 97116; 97162; 97165; 97530; 97535; 99285; G0378; A9270; J1100; J1650; J1940; J2270; J2405; J2543; J3370; J7030; J7050; J9045; Q9967

== ENCOUNTER 2023-07-27 23:15 | Outpatient (CLI) | payer MEDICARE, BC, SELFPAY | END 2023-07-27 23:16 | disposition home or self-care (01) | LOC: AMB 08-01 09:05 | PROVIDERS: PCP Family Medicine; Visit Provider Family Medicine | DX: C01 Malignant neoplasm of base of tongue (principal); C34.92 Malignant neoplasm of unspecified part of left bronchus or lung; R50.9 Fever, unspecified; R17 Unspecified jaundice | CPT/HCPCS: A0425; A0429 ==

== ENCOUNTER 2023-08-05 10:13 | Emergency (ER) | payer MEDICARE, BC, SELFPAY ==
[2023-08-05] VITALS (24 sets, daily range): BP systolic 124–158; BP diastolic 63–81; PULSE 34–58; RESP 20; TEMP 36.3; O2SAT 96–99; BMI 35.7
--- NOTE | 2023-08-05 10:46 | ED_ITS ---
HPI - General Adult General Date Seen: 08/05/23 Chief complaint: Arrhythmia/Palpitations Stated complaint: slow heartbeat Time Seen by Provider: 08/05/23 10:14 History of Present Illness HPI narrative: 78-year-old gentleman referred from the cancer infusion center today for evaluation of bradycardia. 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 He had a lymph node dissection done at [facility] [facility] in Jun. He also apparently had resection of the base of his tongue. He had been recently receiving radiation to his neck lymph nodes. He is on chemotherapy with carboplatin. 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 Other past medical history includes hypertension, hyperlipidemia, prediabetes, GERD. He had been hospitalized last week for an infection. Per records-presented to ER on 07/23 for fever, weakness. His creatinine was elevated up to 1.9 but improved while in the hospital. He received several L of fluid IV. He was hospitalized here and put on antibiotics for fever of unclear origin. While in the hospital he developed worsening liver function tests and elevated bilirubin. He also had some arrhythmia, possibly AFib but not a definitive diagnosis. He was transferred to [facility] because of his worsening liver failure. While at [facility] he had a liver biopsy and it was determined that his liver failure was most likely attributable to the Zosyn he had received. He was put on prednisone for hepatic failure. No definitive diagnosis was made for his arrhythmia at [facility] so he was sent home with a 30 day Holter monitor. He apparently had a liver biopsy at [facility] on 07/29 which showed g is no pneumatosis hepatitis. Bilirubin peaked at 6.0 according to paper records from [facility], provided by the patient's . On prednisone 60 mg per day with a plan to taper down over the next couple of weeks. On Bactrim for prophylaxis. On PPI. He was discharged from [facility] on Saturday. He has been feeling well this weekend. His notes that he is less swollen now than he was when he was in the hospital. He is less jaundiced. 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 He is not having any chest pain, palpitations, shortness of breath, dizziness, fatigue, or other symptoms.. He returned for a follow-up visit with Oncology here in [place] today. He was noted to have scleral icterus. Lungs were clear. Labs from clinic today show sodium 136, potassium 3.1L, chloride 103, bicarb 28, calcium 9.1, glucose 165, BUN 30, creatinine 1.2, AST 55H, ALT 109H the, bilirubin 2.8H alk-phos 490H WBC 13.85, hemoglobin 11.0, platelet count 366 He was coming back to the infusion center today to receive an infusion of potassium. Heart rate was noted to be in 30s and he was referred here to the ER. Although he has a slow heart rate he feels fine. He is asymptomatic His feels he probably needs transfer back to [facility]. Related Data Home Medications Medication Instructions Recorded Confirmed allopurinol 300 mg tablet 300 mg PO QDAY 07/15/23 08/05/23 amitriptyline 50 mg tablet 50 mg PO HS 07/15/23 08/05/23 amlodipine 10 mg tablet 10 mg PO DAILY 07/15/23 08/05/23 esomeprazole magnesium 20 mg 20 mg PO DAILY 07/15/23 08/05/23 capsule,delayed release sennosides 8.6 mg tablet (Natural 8.6 mg PO DAILY 07/15/23 08/05/23 Senna Laxative) fluoride (sodium) 1.1 % dental gel PO DAILY 07/24/23 08/05/23 aluminum-mag hydroxide-simethicone 5 ml PO QID PRN 08/05/23 08/05/23 400 mg-400 mg-40 mg/5 mL oral susp (Maalox Maximum Strength) prednisone 20 mg tablet 60 mg PO QDAY 08/05/23 08/05/23 sulfamethoxazole 400 1 tab PO QDAY 08/05/23 08/05/23 mg-trimethoprim 80 mg tablet Previous Rx's Medication Instructions Recorded ondansetron HCl 4 mg tablet 4 mg PO Q8H #60 tabs 07/15/23 prochlorperazine maleate 5 mg 5 mg PO BID PRN nausea and 07/15/23 tablet (Compazine) vomiting #60 tabs potassium chloride 20 mEq 20 meq PO QDAY #7 tabs 08/05/23 tablet,extended release Allergies Allergy/AdvReac Type Severity Reaction Status Date / Time zosyn Allergy Severe liver Uncoded 04/22/24 08:28 failure statins AdvReac Mild itching Uncoded 07/30/23 09:06 [facility] Medical History (Updated 08/05/23 @ 08:57 by Diana Morillo MD) GERD (gastroesophageal reflux disease) ?K21.9 - Gastro-esophageal reflux disease without esophagitis (ICD-10) Oral pain ?K13.79 - Other lesions of oral mucosa (ICD-10) Diabetes mellitus ?E11.9 - Type 2 diabetes mellitus without complications (ICD-10) CKD (chronic kidney disease) ?N18.9 - Chronic kidney disease, unspecified (ICD-10) Renal insufficiency ?N28.9 - Disorder of kidney and ureter, unspecified (ICD-10) BPH (benign prostatic hyperplasia) ?N40.0 - Benign prostatic hyperplasia without lower urinary tract symptoms (ICD-10) Anxiety ?F41.9 - Anxiety disorder, unspecified (ICD-10) Gout ?M10.9 - Gout, unspecified (ICD-10) Hyperlipidemia ?E78.5 - Hyperlipidemia, unspecified (ICD-10) Palpitations ?R00.2 - Palpitations (ICD-10) Hypertension ?I10 - Essential (primary) hypertension (ICD-10) Social History (System 07/30/23 @ 09:06 by Fernanda Perez) What is your current living situation?: I presently have a place to live Problems where you live: no known problems Problems where you live details: n/a In the past 12 months, utilities in danger of being shut off: no In past 12 months, lack of transportation kept you from medical appts, meetings, work, or getting things needed for daily living: no In the past 12 mos, have been you worried that your food would run out before you had money to buy more?: never true In the past 12 mos, the food you bought just didn't last and you didn't have money to buy more?: never true Smoking Status: Never smoker How often do you have a drink containing alcohol: never AUDIT-C Alcohol total score: 0 Non-prescribed substance use: denies use Caffeine: No How often does anyone, including family, friends and others, physically hurt you : never How often does anyone, including family, friends and others, insult or talk down to you: never How often does anyone, including family, friends and others, threaten you with harm: never How often does anyone, including family, friends and others, scream or curse at you: never service: No Exam Narrative: Exam Narrative: Constitutional: Appears well-developed and well-nourished. Alert. Conversant. Polite. Non toxic. HENT: Head: Atraumatic. Nose: Nose normal. Mouth/Throat: Oral mucosa is clear and moist. no trismus. Pharynx normal. Tonsils symmetric. No tonsillar enlargement, erythema, or exudate. Eyes: Conjunctivae normal. EOM normal. Pupils equal, round, and reactive to light. No scleral icterus. Neck: Normal range of motion. Neck supple. No tracheal deviation present. Cardiovascular: Bradycardic, heart rate mostly in the 30s with occasional rises up into the 40s. Sinus bradycardia on the monitor. 1:1 Pwave: QRS. regular rhythm. No gallop. No friction rub. No murmur heard. Symmetric radial artery pulses no JVD. Pulmonary/Chest: Effort normal. No stridor. No respiratory distress. No wheezes. No rales. No rhonchi . No tenderness. Abdominal: Soft. Bowel sounds normal. No distension. No mass. No tenderness. No hepatomegaly. No rebound. No guarding. Musculoskeletal: RUE: Normal range of motion. No tenderness. No deformity LUE: Normal range of motion. No tenderness. No deformity RLE: Normal range of motion. No edema. No tenderness. No deformity LLE: Normal range of motion. No edema. No tenderness. No deformity Neurological: Alert and oriented to person, place, and time. Normal strength. CN II-VII intact. No sensory deficit. GCS eye subscore is 4. GCS verbal subscore is 5. GCS motor subscore is 6. Normal coordination Skin: Skin is warm and dry. No rash noted. No pallor. Normal capillary refill. Psychiatric: Normal mood. Normal affect. Polite. Const: Vital Signs, click to edit/add: Vital Signs - 24 hr 08/05/23 10:37 08/05/23 10:43 08/05/23 11:00 Temperature 97.3 F L Pulse Rate 36 L 38 L Pulse Rate [Right Pulse Oximeter] 40 L Respiratory Rate 20 Blood Pressure Blood Pressure [Ri ght Upper Arm] 140/71 H Pulse Oximetry 96 97 97 Oxygen Delivery Me thod Room Air 04/22/24 11:02 08/05/23 11:03 08/05/23 11:30 Temperature Pulse Rate 45 L 38 L 37 L Pulse Rate [Right Pulse Oximeter] Respiratory Rate Blood Pressure 145/70 H Blood Pressure [Ri ght Upper Arm] Pulse Oximetry 97 96 96 Oxygen Delivery Me thod 08/05/23 11:32 08/05/23 11:33 08/05/23 12:00 Temperature Pulse Rate 37 L 37 L 35 L Pulse Rate [Right Pulse Oximeter] Respiratory Rate Blood Pressure 141/81 H Blood Pressure [Ri ght Upper Arm] Pulse Oximetry 96 96 97 Oxygen Delivery Me thod 08/05/23 12:02 08/05/23 12:03 08/05/23 12:30 Temperature Pulse Rate 36 L 35 L 37 L Pulse Rate [Right Pulse Oximeter] Respiratory Rate Blood Pressure 132/69 Blood Pressure [Ri ght Upper Arm] Pulse Oximetry 98 98 98 Oxygen Delivery Me thod 08/05/23 12:32 08/05/23 13:00 08/05/23 13:02 Temperature Pulse Rate 35 L 37 L 35 L Pulse Rate [Right Pulse Oximeter] Respiratory Rate Blood Pressure 148/74 H 158/64 H Blood Pressure [Ri ght Upper Arm] Pulse Oximetry 97 99 98 Oxygen Delivery Me thod 08/05/23 13:03 08/05/23 13:30 08/05/23 13:32 Temperature Pulse Rate 37 L 58 L 49 L Pulse Rate [Right Pulse Oximeter] Respiratory Rate Blood Pressure 124/72 Blood Pressure [Ri ght Upper Arm] Pulse Oximetry 97 96 97 Oxygen Delivery Me thod 08/05/23 14:00 08/05/23 14:02 08/05/23 14:03 Temperature Pulse Rate 35 L 35 L 34 L Pulse Rate [Right Pulse Oximeter] Respiratory Rate Blood Pressure 124/63 Blood Pressure [Ri ght Upper Arm] Pulse Oximetry 96 96 96 Oxygen Delivery Me thod 08/05/23 14:30 08/05/23 14:32 08/05/23 14:33 Temperature Pulse Rate 36 L 47 L 40 L Pulse Rate [Right Pulse Oximeter] Respiratory Rate Blood Pressure 127/66 Blood Pressure [Ri ght Upper Arm] Pulse Oximetry 98 97 96 Oxygen Delivery Me thod Course Vital Signs Vital signs: Initial Vital Signs Temperature 97.3 F L 08/05/23 10:37 Temperature Source Temporal Artery Scan 08/05/23 10:37 Pulse Rate 40 L 08/05/23 10:37 Respiratory Rate 20 08/05/23 10:37 Blood Pressure 140/71 H 08/05/23 10:37 Blood Pressure Mean 94 08/05/23 10:37 Blood Pressure Position Sitting 08/05/23 10:37 Pulse Oximetry 96 08/05/23 10:37 Oxygen Delivery Method Room Air 08/05/23 10:37 Vital Signs Temperature 97.3 F L 08/05/23 10:37 Pulse Rate 40 L 08/05/23 10:37 Respiratory Rate 20 08/05/23 10:37 Blood Pressure 140/71 H 08/05/23 10:37 Pulse Oximetry 96 08/05/23 10:37 Oxygen Delivery Method Room Air 08/05/23 10:37 Temperature 97.3 F L 08/05/23 10:37 Pulse Rate 40 L 08/05/23 14:33 Respiratory Rate 08/05/23 10:37 Blood Pressure 127/66 08/05/23 14:32 Pulse Oximetry 96 08/05/23 14:33 Oxygen Delivery Method Room Air 08/05/23 10:37 Medications Administered Medications: Discontinued Medications Generic Name Dose Route Start Last Admin Trade Name Freq PRN Reason Stop Dose Admin Potassium Chloride 10 meq in 100 mls @ 100 mls/hr 08/05/23 11:10 08/05/23 12:30 Potassium Chloride IVPB 08/05/23 12:09 Infused ONCE ONE Infusion Potassium Bicarbonate 25 meq 08/05/23 11:09 08/05/23 11:23 Potassium Bicarb 25 Meq Effervescent Tab PO 08/05/23 11:10 25 meq ONCE ONE Administration Medical Decision Making [facility] Narrative Medical decision making narrative: 78-year-old male with a very complex recent past history notable for known left upper lobe lung cancer and also recent diagnosis of throat cancer with metastases to his right-sided lymph nodes. He has had a tongue surgery and lymph node dissection done at [facility] just over a month ago. He was started on chemotherapy and radiation. About 12 days ago after he receiving a couple of days a chemo he developed a fever and was hospitalized here at [place] for fever workup and evaluation. While in the hospital developed abnormal liver function tests. Transfer down to [facility]. While there had further workup and liver biopsy. It is felt that his abnormal liver functions were probably medication induced by Zosyn. That was discontinued. He is no longer having fevers. He was started on prednisone. LFTs have been improving. Also while in the hospital he apparently had some cardiac arrhythmias but no clear diagnosis was made. He was sent home with a 30 day Holter monitor. Came back to the outpatient oncology clinic today for a follow-up. He is feeling fine. His potassium is mildly low at 3.1. He was referred for outpatient potassium infusion, but was also noted to have a heart rate of 36 so was referred here to the ER. He has been feeling well since he was discharged from the hospital. His jaundice is improving. His fluid overload is also improving. The patient's blood pressure is normal at 140/70. Mental status is normal. Skin is pink, warm, well perfused. He is asymptomatic despite his bradycardia. EKG and monitor confirm sinus bradycardia. Also occasional PVCs. Heart rates her predominantly in the 30s with occasional rises up into the 40s. Labs through the oncology clinic this morning showed a white count of 13.85. He is not febrile. I suspect this leukocytosis is probably related to the prednisone. Glucose 165. Likely related to prednisone. Total bilirubin today is 2.8, trending down from 6.0 at [facility] last week. He is not having any chest pain. EKG is bradycardic but nonischemic. Screening troponin is negative. No shortness of breath. Oxygen saturation normal on room air. Lungs are clear. No evidence for pulmonary edema. Thyroid-TSH is normal Potassium was low at 3.1. No U-waves on EKG. Serum magnesium normal at 1.7. I wonder bradycardia could be related to the hypokalemia. However typically he would be associated with hyperkalemia. Discussed with cardiology from [facility]-Dr. Tapia. He reviewed the patient's monitor yesterday was showing sinus bradycardia with heart rate in the 40s. Today it showing heart sinus bradycardia with heart rate in the 30s. He is also noting a few areas that he either could be artifact or might be episodes of 2:1 conduction with a second-degree AV block. Although the patient is currently asymptomatic he agrees the transfer to the [facility] floor at [facility] is warranted so he cannot monitoring there and if his heart rate deteriorates or if you develops any symptoms or becomes unstable, he can have pacemaker immediately available. Patient and his are both in agreement. He is transferred by EMS because of bradycardia. Blood pressure remained stable.. Lab Data Labs: Lab Results 08/05/23 Range/Units 11:20 Lactate 2.0 H (0.5-1.9) mmol/L Magnesium 1.7 (1.5-2.6) mg/dL Troponin I 0.01 (0.01-0.04) ng/mL TSH 0.902 (0.270-4.200) uIU/mL ECG Data Attestation: I personally reviewed and interpreted this ECG as follows: Interpretation: Marked sinus bradycardia. There is a P-wave for every QRS and a QRS failure P wave Rate: 36 OH: 120 by my measurement QRS axis: Normal axis. ST segment/T wave: No ST segment elevation or depression. No Q-waves. QTc: 422 Discharge Plan Discharge Prescriptions: No Action allopurinol 300 mg tablet 300 mg PO QDAY amitriptyline 50 mg tablet 50 mg PO HS amlodipine 10 mg tablet 10 mg PO DAILY esomeprazole magnesium 20 mg capsule,delayed release(DR/EC) 20 mg PO DAILY sennosides [Natural Senna Laxative] 8.6 mg tablet 8.6 mg PO DAILY prochlorperazine maleate [Compazine] 5 mg tablet 5 mg PO BID PRN (Reason: nausea and vomiting) Qty: 60 0RF ondansetron HCl 4 mg tablet 4 mg PO Q8H Qty: 60 0RF alum-mag hydroxide-simeth [Maalox Maximum Strength] 400-400-40 mg/5 mL suspension 5 ml PO QID PRN prednisone 20 mg tablet 60 mg PO QDAY Patient Comments: Tapering dose 60mg times 11 days but will probably taper sulfamethoxazole-trimethoprim 400-80 mg tablet 1 tab PO QDAY Patient Comments: for 10 days potassium chloride 20 mEq tablet extended release 20 meq PO QDAY Qty: 7 0RF fluoride (sodium) 1.1 % gel PO DAILY Follow Up/Referrals: Provider,Not a Local [Primary Care Provider] -
[2023-08-05] MEDS: POTASSIUM BICARB 25 MEQ EFFERVESCENT TAB PO (11:23)
[2023-08-05] MEDS: POTASSIUM CHLORIDE 10 MEQ/100 ML PIGGYBACK 100 MEQ IVPB (11:23)
[2023-08-05 11:42] LABS: Magnesium* 1.7 mg/dL (1.5-2.6)
[2023-08-05 11:55] LABS: Troponin I* 0.01 ng/mL (0.01-0.04)
[2023-08-05 12:25] LABS: TSH With Reflex to FT4* 0.902 uIU/mL (0.270-4.200)
== END 2023-08-05 15:00 | disposition short-term general hospital (02) ==
LOC: ED 11:22
PROVIDERS: Emergency Provider Emergency Medicine
DX: R00.1 Bradycardia, unspecified (principal)
CPT/HCPCS: 36415; 80053; 83605; 83735; 84443; 84484; 85025; 96365; 96375; 99215; 99284; 99285; G0463; A9270; J3480

== ENCOUNTER 2023-08-05 14:48 | Outpatient (CLI) | payer MEDICARE, BC, SELFPAY | END 2023-08-05 14:49 | disposition home or self-care (01) | LOC: AMB 08-12 17:14 | PROVIDERS: Visit Provider Family Medicine | DX: R00.1 Bradycardia, unspecified (principal) | CPT/HCPCS: A0425; A0427 ==

== ENCOUNTER 2023-08-13 11:00 | Outpatient (RCR) | payer MEDICARE, BC, SELFPAY ==
--- NOTE | 2023-07-16 11:26 | ONC.NURNOTE ---
Carboplatin/chemo teaching initiated with and patient discussed treatment routine possible side effects reviewed, taking antiemetics at home, calling with concerns, after hours management discussed, fever management reviewed contents of treatment binder information questions addressed ANKITA and consents reviewed and signed treatment start date scheduled discussed dietitian consult to be done either with Rad Onc or through the [facility]
--- NOTE | 2023-07-16 15:16 | URNOTE ---
Pt has Medicare/BCSRGold. Prior auth is not required for Carboplatin (J9045) as services are based on medical necessity and follow medicare guidelines
[2023-07-22 14:21] LABS: Basophils Absolute Auto 0.04 K/uL (0.00-0.30); Basophils Percent Auto 0.5 % (0.0-3.0); Eosinophils Absolute Auto 0.55 K/uL (0.00-0.50); Eosinophils Percent Auto 6.2 % (0.0-7.0); Hematocrit 39.5 % (37.0-53.0); Immature Granulocytes Abs Auto 0.03 K/uL (0.00-0.30); Immature Granulocytes Pct Auto 0.3 %; Lymphocytes Absolute Auto 1.82 K/uL (0.90-2.90); Lymphocytes Percent Auto 20.7 % (20-44); Mean Corpuscular HGB Conc 33 gm/dL (32-36); Mean Corpuscular Hemoglobin 31 pg (26-34); Mean Corpuscular Volume 95 fL (80-100); Monocytes Percent Auto 9.8 % (0.0-11.0); Neutrophils Absolute Auto 5.51 K/uL (1.7-7.0); Neutrophils Percent Auto 62.5 % (42.0-72.0); Platelet Count* 295 K/uL (140-440); RDW Coefficient of Variation % 14.5 % (11.5-15.5); Red Blood Count 4.16 m/uL (4.30-5.90); White Blood Count* 8.81 K/uL (4.50-11.00)
[2023-07-22 14:22] LABS: Slide Review Reflex No
[2023-07-22 14:51] LABS: Albumin* 4.3 g/dL (3.3-5.0); Chloride* 108 mmol/L (96-114)
[2023-07-22 14:52] LABS: Potassium* 4.6 mmol/L (3.6-5.1); Sodium* 141 mmol/L (135-149)
[2023-07-22 14:54] LABS: Anion Gap 8 mEq/L (7-15); Aspartate Amino Transferase* 20 U/L (12-35); Bilirubin Total* 0.4 mg/dL (0.1-1.5); Blood Urea Nitrogen* 21 mg/dL (7-30); Carbon Dioxide* 25 mmol/L (20-32); Creatinine* 1.3 mg/dL (0.5-1.5); Est. Creatinine Clearance* 46.79; Estimated Glomerular Filt Rate 56 ml/min; Total Protein* 7.5 g/dL (6.0-8.3)
[2023-07-22 14:55] LABS: Alanine Aminotransferase* 18 U/L (4-50); Alkaline Phosphatase* 98 U/L (40-150); Calcium* 9.9 mg/dL (8.4-10.6); Glucose* 130 mg/dL (60-115)
--- NOTE | 2023-07-23 07:18 | URNOTE ---
Prior auth is not required for Aloxi (J2469). Pt has medicare/ SR Gold. Services based on medical necessity and follow medicare guidelines
[2023-07-23] MEDS: SODIUM CHLORIDE 0.9 % (FLUSH) 10 ML SYRINGE IVF (10:50)
[2023-07-23] MEDS: 0.9 % SODIUM CHLORIDE 250 ml IV (10:50)
[2023-07-23] MEDS: ONDANSETRON 2 MG/ML inj 8 MG IV (10:56)
[2023-07-23] MEDS: dexAMETHasone 20 MG in 0.9 % SODIUM CHLORIDE 100 ml 100 ML 408 MG IVPB (10:57)
--- NOTE | 2023-07-23 13:04 | PC.NURSE ---
Pt present at [facility] for first chemo treatment. Henrik is currently taking Tylenol and Ibuprofen every 3 hours, alternating and around the clock, to manage throat pain. They were advised to ask oncology about holding Tylenol as it could mask fevers. RN reviewed labs and noted creatinine 1.3. We discussed that it may be more important to hold off on ibuprofen for now due to that result. No concern with taking Tylenol. Urged pt and his to discuss further with radiation oncology. They verbalized understanding.
--- NOTE | 2023-07-24 15:02 | ONC.NURNOTE ---
Pediatric Physician Assistant called patient to see how he was feeling following chemotherapy yesterday, his picked up the phone and notes that she received a phone call from him recently stating that he was having chills. She has tried to call patient back without getting ahold of him. She sent a family member to check on him and they were planning to come to [facility]. She was told to have them give us a call, and we can give the ER a heads up.
[2023-08-05 08:12] LABS: Basophils Percent Auto 0.1 % (0.0-3.0); Eosinophils Percent Auto 0.6 % (0.0-7.0); Hematocrit 31.4 % (37.0-53.0); Immature Granulocytes Pct Auto 2.5 %; Lymphocytes Percent Auto 10.3 % (20-44); Mean Corpuscular HGB Conc 35 gm/dL (32-36); Mean Corpuscular Hemoglobin 32 pg (26-34); Mean Corpuscular Volume 91 fL (80-100); Monocytes Percent Auto 6.7 % (0.0-11.0); Neutrophils Percent Auto 79.8 % (42.0-72.0); Platelet Count* 366 K/uL (140-440); RDW Coefficient of Variation % 17.4 % (11.5-15.5); Red Blood Count 3.46 m/uL (4.30-5.90); White Blood Count* 13.85 K/uL (4.50-11.00)
[2023-08-05 08:14] LABS: Slide Review Reflex No
[2023-08-05 08:23] LABS: Albumin* 3.6 g/dL (3.3-5.0)
[2023-08-05 08:24] LABS: Chloride* 103 mmol/L (96-114); Potassium* 3.1 mmol/L (3.6-5.1); Sodium* 136 mmol/L (135-149)
[2023-08-05 08:26] LABS: Anion Gap 5 mEq/L (7-15); Bilirubin Total* 2.8 mg/dL (0.1-1.5); Carbon Dioxide* 28 mmol/L (20-32); Creatinine* 1.2 mg/dL (0.5-1.5); Est. Creatinine Clearance* 50.69; Estimated Glomerular Filt Rate 61 ml/min
[2023-08-05 08:27] LABS: Alanine Aminotransferase* 109 U/L (4-50); Alkaline Phosphatase* 419 U/L (40-150); Aspartate Amino Transferase* 55 U/L (12-35); Blood Urea Nitrogen* 30 mg/dL (7-30); Calcium* 9.1 mg/dL (8.4-10.6); Glucose* 165 mg/dL (60-115); Total Protein* 6.6 g/dL (6.0-8.3)
[2023-08-05 09:45] VITALS: BP 140/62; PULSE 36; RESP 18; TEMP 36.2; O2SAT 95
--- NOTE | 2023-08-05 10:22 | PC.NURSE ---
pt HR was 36. double checked and MD was notified PT was taken to ER via a w/c for evaluation,. Pt is not symptotic with low HR, he was very pleasant.
--- NOTE | 2023-08-07 13:20 | ONC.NURNOTE ---
Patients spouse called to let us know that patient was discharged from the hospital yesterday. He is continuing with radiation this week Saturday-Saturday. He is currently scheduled Saturday for labs and TEDDY, with chemotherapy on Saturday. Calendar faxed to radiation oncology where patient is currently.
[2023-08-12 14:12] LABS: Basophils Percent Auto 0.1 % (0.0-3.0); Eosinophils Percent Auto 0.1 % (0.0-7.0); Hematocrit 37.1 % (37.0-53.0); Hemoglobin* 12.3 gm/dL (13.5-17.5); Lymphocytes Percent Auto 4.3 % (20-44); Mean Corpuscular HGB Conc 33 gm/dL (32-36); Mean Corpuscular Hemoglobin 32 pg (26-34); Mean Corpuscular Volume 97 fL (80-100); Monocytes Percent Auto 3.7 % (0.0-11.0); Neutrophils Percent Auto 90.8 % (42.0-72.0); Platelet Count* 279 K/uL (140-440); RDW Coefficient of Variation % 17.7 % (11.5-15.5); Red Blood Count 3.83 m/uL (4.30-5.90); White Blood Count* 11.75 K/uL (4.50-11.00)
[2023-08-12 14:18] LABS: Slide Review Reflex No
[2023-08-12 14:50] LABS: Chloride* 98 mmol/L (96-114); Sodium* 135 mmol/L (135-149)
[2023-08-12 14:52] LABS: Creatinine* 1.2 mg/dL (0.5-1.5); Est. Creatinine Clearance* 50.69; Estimated Glomerular Filt Rate 61 ml/min
[2023-08-12 14:53] LABS: Alanine Aminotransferase* 93 U/L (4-50); Alkaline Phosphatase* 267 U/L (40-150); Anion Gap 7 mEq/L (7-15); Aspartate Amino Transferase* 47 U/L (12-35); Bilirubin Total* 1.5 mg/dL (0.1-1.5); Blood Urea Nitrogen* 24 mg/dL (7-30); Calcium* 9.5 mg/dL (8.4-10.6); Carbon Dioxide* 30 mmol/L (20-32); Glucose* 177 mg/dL (60-115); Total Protein* 7.1 g/dL (6.0-8.3)
[2023-08-12 15:25] LABS: Magnesium* 1.9 mg/dL (1.5-2.6)
== END 2024-01-11 23:59 | disposition home or self-care (01) ==
LOC: CCIC 11:00
PROVIDERS: PCP Family Medicine; Referring Provider Family Medicine; Visit Provider Internal Medicine Hematology & Oncology
DX: C01 Malignant neoplasm of base of tongue (principal)
CPT/HCPCS: 36415; 80053; 83735; 85025; 96376; 96413; 99202; 99205; 99215; G0463; J1100; J2405; J7050; J9045

== ENCOUNTER 2023-09-17 14:15 | Outpatient (RCR) | payer MEDICARE, BC, SELFPAY ==
--- NOTE | 2023-08-14 16:27 | PT.OPEX ---
PT [facility] Outpatient Eval PT [facility] Outpatient Eval Start: 08/14/23 07:44 Freq: Status: Active Protocol: Document 08/14/23 07:44 LOULOUPiper (Rec: 08/14/23 12:51 YENI [id number]) E-signed By Roxanna Núñez, PT Physical Therapy Outpatient Evaluation Insurance Information Recert Due Date 11/08/23 Insurance Name Medicare B,Blue Cross/Blue Shield Medical Diagnosis Squamous cell carcinoma of the right neck: right tongue base dissection and right neck lymph node dissection 06/21/23 Treating Diagnosis Cervicalgia, limited shoulder R ROM, R UE weakness Referring MD Zenaida Penny, [employer], DNP Subjective Subjective Bill reports to PT to evaluate and treat following neck/ lymph node dissection and radiation treatment secondary to stage 2 squamous cell carcinoma of the neck with right base of tongue resection and right neck lymph node 06/20. He will continue with radiation treatment at [facility] (10/12 treatments done) however would like to transfer chemotherapy treatment to [place] as he has most of his work-up done there . He notes he has had some therapy done at [place] recently as well. He was recently hospitalized with potential adverse reaction to chemo treatment. He has since been wearing a holter monitor to assess HR as his HR has been at 30 bpm recently. He does note that he has been able to return to most activity at home including painting and ADLs with mild limitation using right upper extremity overhead d/t stiffness and most recently mild weakness. Overall he feels that he has healed well from surgery and able to eat/swallow without difficulty. Main goal for PT is to maintain neck and shoulder mobility and strength . 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 Patient has radiation treatment this afternoon and will relay BP findings today Objective Other/Pertinent Objective Observation: surgical incision in anterolateral R neck healing well and only mild scar tissue palpated. Mild skin changes d/t radiation in right side of neck into UT Cervical ROM: no pain with all motions -Flx: 48 -Ext: 32 -R Rot: 68 -L Rot: 64 -R Sidebend: 42 -L Sidebend: 38 Standing UE ROM (R/L): -ER0: 52/68 -Abd: 147/158 -FF: 135/160 UE Strength (R/L): -ER0: R: 4/5, L: 5/5 -IR0: R: 5/5, L: 5/5 -FF: R: 4/5, L: 5/5 -Abduction: R: 4/5, L: 5/5 -Mid Trap: R: 4-/5, L: 4/5 -Lower Trap: R: 4-/5, L: 4-/5 Mandibular opening (norm 40- 50mm/3fingerwidths): 48mm Mandibular lateral deviation ( norm 8-10mm): 10mm B Functional Test Performed & Score NDI: 4/50 Assessment Assessment/Impression Patient is an 78 year old male presenting to physical therapy for evaluation and treatment s/p neck/lymph node dissection and radiation treatment secondary to stage 2 squamous cell carcinoma of the neck with right base of tongue resection and right neck lymph node 06/21/23 and currently undergoing 30 rounds of radiation. Pt was recently hospitalized twice in July d /t treatment complications which includes drug-induced liver injury secondary medication use. Also had leukocytosis, acute kidney, injury on CKD, bradycardia, possible heart failure which he is being monitored currently. Patient demonstrates WNL cervical and jaw mobility. Patient presents with beginning stage deficits in right upper extremity ROM and strength as well as poor postural positioning/strength. These impairments are limiting the patients ability to brush his hair, reach overhead, and occasionally paint. These are not Bills most notable concerns at this time or feel that these are significantly impacting his daily routine. Thorough education provided on importance of continued compliance with HEP as effects from radiation could arise even 10 years down the line. Patient verbalizes understanding. Primary Functional Limitations Reaching, lifting, ADL ( brushing hair) Plan of Care Rehabilitation Potential Good Physical Therapy Goals In 6 weeks (09/25/23) Pt will demonstrate improved sitting posture without cueing in consecutive sessions in order to decrease strain on neck, shoulders and TMJ Pt will demonstrate at least 140 deg of shoulder flexion and ER 50 in order to be able to dress, bath and brush his hair with the R UE Pt will demonstrate continued WNL neck and jaw mobility in order to demonstrate progress towards goals In 10 weeks (10/23/23) Pt will demonstrate consistent HEP compliance to ensure progress in reaching established goals during course of care. Pt will be compliant with monthly PT check-ins throughout cancer care treatments in order to assess functional progress Treatment Plan/Direct Interventions Manual Therapy,Neuromuscular Re-ed,Self-Care/Home Management,Therapeutic Activities,Therapeutic Exercises Frequency/Duration Will re-evaluate post radiation treatment Patient Will Be Discharged From Therapy Completion of LTG(s), Independent w/HEP, Independently Progressing Evaluation Billing Untimed Code Treatment Minutes 28 Complexity Low Certification Information Initial Certification Date 08/14/23 Ending Certification Date 11/08/23 Provider Signature Shows Agreement With POC & Medical Necessity Physician Signature & Date Requested Please Sign/Date Here Physician Comment/Change : Physician NPI Number #
== END 2023-12-27 14:11 | disposition home or self-care (01) ==
PROVIDERS: Visit Provider Nurse Practitioner
DX: Z98.890 Other specified postprocedural states (principal); D09.8 Carcinoma in situ of other specified sites; M54.2 Cervicalgia; Z74.09 Other reduced mobility; R29.898 Other symptoms and signs involving the musculoskeletal system; Z51.89 Encounter for other specified aftercare
CPT/HCPCS: 97110; 97161; 97166; 97535